=== PATIENT | female | born 1960 | race Caucasian/White ===

== ENCOUNTER 2019-06-27 09:56 | Outpatient (CLI) | payer BC, SELFPAY ==
[2019-06-27 10:19] LABS: Basophils Percent Auto 0.5 % (0.2-1.2); Eosinophils Absolute Auto 0.1 K/mm3 (0-0.3); Eosinophils Percent Auto 2.1 % (0-4.4); Hematocrit 48.6 % (37.0-47.0); Hemoglobin 16.8 g/dL (12.0-15.0); Immature Granulocyte Absolute 0.01 K/mm3 (0.00-0.031); Immature Granulocyte Percent A 0.2 % (0-0.5); Lymphocytes Absolute Auto 0.86 K/mm3 (0.9-3.2); Lymphocytes Percent Auto 15.1 % (18.3-44.2); Mean Corpuscular HGB Conc 34.6 g/dl (32-36); Mean Corpuscular Hemoglobin 32.6 pg (26-34); Mean Corpuscular Volume 94.4 fl (80-100); Mean Platelet Volume 10.4 fl (7.4-10.4); Monocytes Absolute Auto 0.4 K/mm3 (0.1-0.6); Monocytes Percent Auto 7.4 % (2.6-8.5); Neutrophils Absolute Auto 4.3 K/mm3 (1.3-6.7); Neutrophils Percent Auto 74.7 % (45.5-73.1); Platelet Count Result 244 k/mm3 (150-375); Red Blood Count 5.15 M/mm3 (4.2-5.4); Red Cell Distribution Width 12.5 % (11.5-14.5); White Blood Count 5.7 K/mm3 (4.5-10.0)
[2019-06-27 10:24] LABS: Add Urine Microscopic? YES; Appearance Urine Clear (Clear); Bacteria Urine Trace /hpf; Bilirubin Urine Negative (Negative); Blood Urine 2+ (Negative); Color Urine Yellow (Yellow); Glucose Urine UA Negative (Negative); Ketones Urine Trace mg/dL (Negative); Leukocyte Esterase Ur Negative LEU/UL (Negative); Mucus Urine Rare /lpf; Nitrate Urine Negative (Negative); Protein Urine Negative (Negative); Specific Grav Ur 1.011 (1.001-1.035); Squamous Epithelial Cell Urine Few /hpf (Few); Urobilinogen Urine Negative mg/dL (<2.0)
[2019-06-27 10:39] LABS: Alanine Aminotransferase 23 U/L (4-35); Albumin Level 4.1 g/dL (3.5-5.1); Alkaline Phosphatase 109 U/L (38-126); Amylase 73 U/L (30-110); Aspartate Amino Transferase 30 U/L (14-36); Bilirubin,Total 0.7 mg/dL (0.2-1.3); Blood Urea Nitrogen 9 mg/dL (7-17); Calcium 9.8 mg/dL (8.4-10.2); Carbon Dioxide 30 mmol/L (22-30); Chloride 105 mmol/L (98-107); Estimated Glomerular Filt Rate > 60; Glucose 115 mg/dL (65-105); Lipase 51 U/L (23-300); Potassium 4.4 mmol/L (3.4-5.0); Sodium 139 mmol/L (137-145)
== END 2019-06-27 09:57 | disposition home or self-care (01) ==
PROVIDERS: PCP Family Medicine; Visit Provider Family Medicine
DX: R10.11 Right upper quadrant pain (principal); R11.0 Nausea
CPT/HCPCS: 36415; 80053; 81001; 82150; 83690; 85025

== ENCOUNTER 2020-05-22 11:05 | Outpatient (CLI) | payer BC, SELFPAY ==
--- NOTE | ~2020-05-22 | US_ITS ---
EXAMINATION: US venous doppler LE RT DATE: 05/22/2020 11:37 INDICATION: Right lower limb pain TECHNIQUE: Walls scale images without and with compression and Doppler images of the right lower extre mity veins were obtained. COMPARISON: None FINDINGS: The right common femoral vein, profunda femoral vein, femoral vein, popliteal vein, peronea l trunk, posterior tibial veins, and greater saphenous vein are patent. IMPRESSION: 1. Patent right lower extremity veins. No evidence of deep venous thrombosis. Reviewed, dictated and finalized at location B.
== END 2020-05-22 11:06 | disposition home or self-care (01) ==
PROVIDERS: PCP Family Medicine; Visit Provider Orthopaedic Surgery
DX: M79.89 Other specified soft tissue disorders (principal)
CPT/HCPCS: 93971

== ENCOUNTER 2020-07-12 07:58 | Outpatient (CLI) | payer BC, SELFPAY ==
--- NOTE | ~2020-07-12 | MM_ITS ---
EXAMINATION: MM screening shazia BI w naif HISTORY: Screening TECHNIQUE: Craniocaudal and mediolateral oblique 3-D tomosynthesis images were obtained and synthetic 2-D images were generated. CAD analysis was submitted and interpreted. COMPARISON: Comparison to multiple prior studies sequentially, with oldest reviewed study dated 11/03. BREAST PARENCHYMAL COMPOSITION: There are scattered areas of fibroglandular density. FINDINGS: There is no evidence of suspicious mass, calcification, or architectural distortion to sugg est malignancy in either breast. There has been no suspicious interval change. IMPRESSION: 1. No mammographic evidence of malignancy. 2. Recommend routine screening mammography in one year. BI-RADS Category 1: Negative Reviewed, dictated and finalized at location A.
== END 2020-07-12 07:59 | disposition home or self-care (01) ==
PROVIDERS: PCP Family Medicine; Visit Provider Family Medicine
DX: Z12.31 Encounter for screening mammogram for malignant neoplasm of breast (principal)
CPT/HCPCS: 77063; 77067

== ENCOUNTER 2021-11-10 16:51 | Inpatient (IN) | payer BC, SELFPAY ==
[2021-11-10] VITALS (34 sets, daily range): BP systolic 120–158; BP diastolic 52–94; PULSE 70–91; RESP 14–25; TEMP 36.3–36.6; O2SAT 93–100; BMI 47.6
--- NOTE | ~2021-11-10 | XR_ITS ---
EXAM: XR wrist LT 2V DATE: 11/10/2021 19:10 HISTORY: joint reduction . COMPARISON: Same date at 5:06 PM. FINDINGS/IMPRESSION: Cast material obscures osseous detail. Considerably improved alignment of the co mminuted distal radial and ulnar fractures, with persistent one half shaft width posterior displaceme nt and persistent 25 degrees posterior angulation. Reviewed, dictated and finalized at location K.
--- NOTE | ~2021-11-10 | XR_ITS ---
EXAMINATION: XR surgery orthopedic DATE: 11/12/2021 14:55 INDICATION: ORIF left wrist fracture TECHNIQUE: 4 fluoroscopic images of the left wrist were obtained during procedure performed by Dr. Pancho echevarria. Radiologist was not present for the imaging or procedure. The amount of fluoroscopy time used during this procedure was 0.5 minutes. COMPARISON: 11/10/2021 FINDINGS: Interval open reduction internal fixation of a comminuted intra-articular fracture of the distal left radius which is now in near anatomic alignment. The fracture is fixed with a volar T plate and screw as well as an interfragmentary screw which spans the oblique fracture plane which extends proximally into the metadiaphyseal region. No significant fracture gap or incongruity at the intertubercular fr acture line which extends to the articular surface of the radial styloid. Additional comminuted extra articular fracture of the distal metadiaphyseal region of the ulna has also been reduced to near-selam tomic alignment and which is subsequently fixed with an axially directed percutaneous pin which exten ds from the ulnar styloid process proximal into the distal diaphysis and beyond the proximal margin o f the [id number]. No other fractures identified. Normal carpal alignment. Joint spaces appear rela tively preserved. IMPRESSION: 1. Near-anatomic alignment post open reduction internal fixation of comminuted fractures of the dista l left radius and ulna. Reviewed, dictated and finalized at location A. IMPRESSION: 1. Near-anatomic alignment post open reduction internal fixation of comminuted fractures of the distal left radius and ulna.
--- NOTE | ~2021-11-10 | XR_ITS ---
EXAM: XR wrist LT min 3V DATE: 11/10/2021 17:13 HISTORY: fall today, deformity to left wrist . COMPARISON: None available. FINDINGS: Decreased mineralization. Comminuted fractures of the distal left radius and ulna, with gr eater than one shaft width posterior displacement, posterior angulation, and overriding bone ends. Th ere is likely intra-articular extension of the radial fracture. No lytic or blastic lesion. Joint spa bina are maintained. No erosion or periosteal change. Soft tissues within normal limits. IMPRESSION: Comminuted, overlapping, angulated, and significantly displaced fractures of the left dis vishnu radius and ulna. Reviewed, dictated and finalized at location K. IMPRESSION: Comminuted, overlapping, angulated, and significantly displaced fra ctures of the left distal radius and ulna.
[2021-11-10] MEDS: fentaNYL CITRATE INJ (*CRX) 100 MCG/2 ML VIAL 50 MCG IV PUSH ×3 (17:19→19:30)
--- NOTE | 2021-11-10 17:25 | ED.UPPEXIN ---
HPI - Extremity Injury (Upper) General Chief Complaint: Extremity Injury, Upper <STEPHEN Moreno Last Filed: 11/11/21 00:13> Stated Complaint: left wrist pain <STEPHEN Moreno Last Filed: 11/11/21 00:13> Time Seen by Provider: 11/10/21 17:00 <STEPHEN Moreno Last Filed: 11/11/21 00:13> Source: patient <STEPHEN Moreno Last Filed: 11/11/21 00:13> Mode of arrival: ambulatory <STEPHEN Moreno Filed: 11/11/21 00:13> Limitations: no limitations <STEPHEN Moreno Last Filed: 11/11/21 00:13> History of Present Illness HPI narrative: Patient is a 61 y/o female who presents to the ED with c/o L wrist pain. Patient reports she was moving sod when she tripped and fell landing with her left wrist against the gardening cart. She developed severe pain in her left wrist with deformity. No head injury or LOC. No other injuries. Patient does report sensation in all fingers, but does report tingling in fourth and fifth digits. She has not taken anything for pain prior to arrival. <STEPHEN Moreno Last Filed: 11/11/21 00:13> Related Data Home Medications: Home Medications Medication Instructions Recorded Confirmed aspirin 81 mg chewable tablet 81 mg PO DAILY 05/07/20 11/10/21 cetirizine 10 mg tablet (Zyrtec) 10 mg PO DAILY PRN seasonal 08/22/21 11/10/21 allergies coenzyme Q10 200 mg capsule 200 mg PO DAILY 11/10/21 11/10/21 <STEPHEN Moreno Last Filed: 11/11/21 00:13> Allergies/Adverse Reactions: Allergies Allergy/AdvReac Type Severity Reaction Status Date / Time No Known Allergies Allergy Verified 11/10/21 23:46 <STEPHEN Moreno Last Filed: 11/11/21 00:13> Review of Systems Review of Systems: CONSTITUTIONAL: Denies fever, chills, or sweats. MUSCULOSKELETAL: Reports L wrist pain. NEUROLOGIC: Reports tingling in L 4th and 5th digits. Denies HI, LOC, numbness, or weakness. <Lauren Pina PA-C - Last Filed: 11/11/21 00:13> All systems reviewed & are unremarkable except as noted in HPI and below <Lauren Pina PA-C - Last Filed: 11/11/21 00:13> [facility] Past Medical History Medical History: Medical History (Updated 11/11/21 @ 16:20 by Carlos Zarate MD) Allergic rhinitis Arthritis Asthma Chronic GERD COVID-19 (08/2021) Degenerative disc disease at L5-S1 level Noted on MRI of the hip and pelvis 03/2018 Hyperglycemia Glucose 115 June 2019 Hyperlipidemia Mammogram normal 07/12/2020 Mild chronic obstructive pulmonary disease Mild obstructive ventilatory impairment noted on PFTs 11/2018 Morbid obesity with BMI of 45.0-49.9, adult Obstructive sleep apnea syndrome Polysomnogram 10/2018 demonstrated mild obstructive sleep apnea with hypoxic events down to 82% but did not meet criteria for CPAP titration. Osteoarthritis of right knee Osteopenia after menopause Noted on x-rays April 2020 patient was referred for DEXA scan September 2021 Polycythemia Postmenopausal <Lauren Pina PA-C - Last Filed: 11/11/21 00:13> Surgical History Surgical History: Surgical History History of colonoscopy (04/2012) Diverticulum transverse colon <Lauren Pina PA-C - Last Filed: 11/11/21 00:13> Family History Family History: Family History Father Diabetes mellitus Hypertension Acute myocardial infarction, Onset Age: 45 Mother , 67 Diabetes mellitus <Lauren Pina PA-C - Last Filed: 11/11/21 00:13> Social History Social History: Social History (Updated 11/11/21 @ 09:14 by ANGIE Choe) Social History: Code status: Full code Surrogate decision maker: Smoking status: Never smoker Second hand tobacco smoke exposure: No Alcohol intake: c
--- NOTE | 2021-11-10 19:03 | PC.NURSE ---
Pt was given 60mg of propofol was given to the pt at 1849. Another 60mg administered at 1851. Final dose of 30mg administered at 1855. Pt tolerated procedure well.
--- NOTE | 2021-11-10 19:37 | PC.NURSE ---
Report received from MACARIO Roman. Pt requesting further pain meds. PA made aware.
[2021-11-10] MEDS: HYDROmorphone HCL INJ (*CRX) 1 MG/ML SYR IV PUSH ×2 (20:11→23:59)
--- NOTE | 2021-11-10 20:11 | PC.NURSE ---
Left arm sling in place and aleks bandage around splint. Pt c/o numbness to 4th, 5th fingers and pain to left forearm. Has good finger movement and cap refill <2sec. Aleks bandage readjusted, loosened somewhat, and replaced into sling. Pain meds IVP.
--- NOTE | 2021-11-10 20:42 | PC.NURSE ---
BARBARA Aguilar at pt's bedside.
--- NOTE | 2021-11-10 21:14 | PC.NURSE ---
Preparing to contact oc for possible admission.
[2021-11-10] MEDS: KETOROLAC 30 MG/ML VIAL (*BKC) IV PUSH (21:34)
[2021-11-10] MEDS: oxyCODONE/ACETAMINOPHEN (*CRX) 5-325 MG TABLET 1 TABLET PO (21:35)
--- NOTE | 2021-11-10 21:46 | PC.NURSE ---
Additional meds given per Anup Benavides RN.
--- NOTE | 2021-11-10 22:13 | PC.NURSE ---
Pt ambulatory to and from bathroom. After assisted back to bed, states that her pain is a little better, rates 8/10. States her pinky finger remains numb. Pt has been elevating extremity and using ice to splint.
--- NOTE | 2021-11-10 22:30 | PC.NURSE ---
BARBARA Aguilar at bedside for reevaluation, 45 min after meds given IV and PO. Pt's pain not significantly better, so planning to admit for pain control per Dr. Cox and Dr. Holm.
--- NOTE | 2021-11-10 22:54 | PM.IMHP ---
H&P: HPI History of Present Illness Date/Time: 11/10/21 22:54 Chief Complaint: Tripped and fell now has wrist pain Narrative: 61-year-old female with past medical history of morbid obesity, polycythemia, postmenopausal osteopenia, obstructive sleep apnea and mild obstructive lung disease who presented to the ER after having a trip and fall landing on her wrist. She had immediate wrist pain with obvious deformity of the wrist. Imaging in the ER demonstrated comminuted overlapping angulated and significantly displaced fractures of the left distal radius and ulna. Patient underwent conscious sedation with propofol and had her fracture reduced and splinted in the ER. Despite reduction of fracture patient was still reporting intractable pain. She received 3 doses of fentanyl 50 mcg in the ER and 1 dose of Dilaudid. When I was called for consult I recommended patient received Toradol 30 mg IV and Percocet. Before the patient was still having 9/10 pain and was reluctant to go home due to intractable pain. Patient being admitted as observation in the setting. the patient reports that she was moving some sod and went to step over a pile of this odd and got tripped up. She fell landing forward and striking her wrist on a metal wheelbarrow. S any she stood up she knew that her wrist was fractured as it was dangling. She reports paresthesias of the 4th and 5th digits of the left hand. She has intact motor activity of the hand. She has significantly decreased sensation to the 5th digit and moderate decreased sensation of lateral aspect of the 4th digit. Cap refill is intact. She reports that her pain has improved a couple of hours after Toradol and Percocet. Her pain is down to an 8/10. She reports that she has broke her left wrist in the past but was treated conservatively with casting. She does have osteoarthritis of the left knee and needs a knee replacement but she cannot have surgery until her BMI is less than 40. She has struggled with her weight for many years in has had difficulty with any significant prolonged weight loss. She does have excessive daytime fatigue. She does have daytime snoring. Patient is postmenopausal and was referred for outpatient DEXA scan September 2021. She did have prior imaging of her knee which demonstrated osteoarthritis and evidence of probable osteopenia. She is at elevated glucoses noted as outpatient and was referred for hemoglobin A1c as well. She has been reporting fatigue and subsequently outpatient TSH B12 and vitamin D levels were ordered. She does not take any calcium or vitamin-D supplements at home. Patient does have history of obstructive sleep apnea with polysomnogram in 2019 demonstrating mild obstructive sleep apnea and episodes nocturnal hypoxia down to 82% but the events were not severe enough to qualify for CPAP titration. Her weight is equivalent to whenever she had her polysomnogram. She reports persistent fatigue. She also reports restless leg movements at night but did not have any significant amount of restless leg movements on her polysomnogram. Review of Systems Review of Systems: 12 systems were reviewed with pertinent positives and negatives per HPI. Except as documented in the HPI, all other systems were reviewed and are negative. [facility] Past Medical History Medical History (Updated 11/11/21 @ 03:19 by Erin Cox, DO) Allergic rhinitis Arthritis Chronic GERD COVID-19 (08/2021) Degenerative disc disease at L5-S1 level Noted on MRI of the hip and pelvis 03/2018 Hyperglycemia Glucose 115 June 2019 Hyperlipidemia Mammogram normal 07/12/2020 Mild chronic obstructive pulmonary disease Mild obstructive ventilatory impairment noted on PFTs 11/2018 Morbid obesity with BMI of 45.0-49.9, adult Obstructive sleep apnea syndrome Polysomnogram 10/2018 demonstrated mild obstructive sleep apnea with hypoxic events down to 82% but did not meet criteria for CPAP titration. Osteoarthritis of
--- NOTE | 2021-11-10 23:10 | ADMGEN ---
This patient, Genet Hickman, was admitted to [facility] Surg Room 302-01. Patient/family oriented to hospital policies and general routines including ID bracelet, bed and alarms, visiting hours, pain management, procedures, bathroom and other care routines, personal items, smoking policy, room service/diet, and visiting hours. Information on how to activate the Rapid Response Team has been discussed. Patient/Family are encouraged to report perceived risks to care and to ask questions if they do not understand what they are told or what they should do.
[2021-11-10 23:50] LABS: Basophils Percent Auto 0.2 % (0.2-1.2); Immature Granulocyte Absolute 0.03 K/mm3 (0.00-0.031); Immature Granulocyte Percent A 0.3 % (0-0.5); Lymphocytes Absolute Auto 0.52 K/mm3 (0.9-3.2); Lymphocytes Percent Auto 4.7 % (18.3-44.2); Mean Corpuscular HGB Conc 34.8 g/dl (32-36); Mean Corpuscular Hemoglobin 33.3 pg (26-34); Mean Corpuscular Volume 95.6 fl (80-100); Mean Platelet Volume 10.1 fl (7.4-10.4); Monocytes Absolute Auto 0.4 K/mm3 (0.1-0.6); Monocytes Percent Auto 3.2 % (2.6-8.5); Neutrophils Absolute Auto 10.2 K/mm3 (1.3-6.7); Neutrophils Percent Auto 91.6 % (45.5-73.1); Platelet Count Result 230 k/mm3 (150-375); Red Blood Count 4.81 M/mm3 (4.2-5.4); Red Cell Distribution Width 13.3 % (11.5-14.5); White Blood Count 11.1 K/mm3 (4.5-10.0)
[2021-11-11] LABS: Anion Gap 7 mmol/L (8-16); Blood Urea Nitrogen 17 mg/dL (7-17); Calcium 9.6 mg/dL (8.4-10.2); Carbon Dioxide 22 mmol/L (22-30); Chloride 107 mmol/L (98-107); Estimated CRCL calculation 123 ml/min; Estimated Glomerular Filt Rate > 60; Glucose 184 mg/dL (65-110); Sodium 136 mmol/L (137-145)
[2021-11-11 00:33] VITALS: BP 134/62
[2021-11-11] MEDS: KETOROLAC 30 MG/ML VIAL (*BKC) IV PUSH (02:53)
[2021-11-11] MEDS: oxyCODONE/ACETAMINOPHEN (*CRX) 10-325 MG TABLET 1 TAB PO ×4 (04:10→19:50)
[2021-11-11 06:00] VITALS: BP 117/62; PULSE 71; RESP 18; TEMP 36.4; O2SAT 94
[2021-11-11 07:27] LABS: Hemoglobin A1C 5.4 % (<5.7)
[2021-11-11 08:16] LABS: Glucose Point of Care 120 mg/dl (65-105)
[2021-11-11] MEDS: ASPIRIN 81 MG CHEWABLE TABLET PO (08:19)
--- NOTE | 2021-11-11 09:11 | PM.CNOR ---
Assessment and Plan Assessment and plan (1) Closed fracture distal radius and ulna: Qualifiers: Encounter type: initial encounter Laterality: left Qualified Code(s): S52.502A - Unspecified fracture of the lower end of left radius, initial encounter for closed fracture; S52.602A - Unspecified fracture of lower end of left ulna, initial encounter for closed fracture <Vivi Minor Naidu, [employer] - Last Filed: 11/11/21 11:50> Code(s): S52.509A - Unspecified fracture of the lower end of unspecified radius, initial encounter for closed fracture; S52.609A - Unspecified fracture of lower end of unspecified ulna, initial encounter for closed fracture <Vivi Genesis. Elysia, [employer] - Last Filed: 11/11/21 11:50> Status: Acute <Vivi M. Elysia, [employer] - Last Filed: 11/11/21 11:50> Assessment and Plan: History, exam and radiographs reviewed with the patient. Radiographs of the left wrist reveal comminuted, overlapping, angulated and displaced fractures of the left distal radius and ulna. Fractures then reduced by the ED physician. Condition, nature, etiology and course of natural history discussed. Conservative and operative treatment options reviewed as well as the risks and benefits of both. The patients questions were answered. The patient desires operative treatment. Discussed ORIF Left Wrist Risks of surgery including but not limited to neurovascular damage, wound complications, blood clot, pulmonary embolus, stroke, myocardial infarction, anesthetic risks up to and including were reviewed. Continued pain and possible dysfunction were explained. No guarantees were offered. The patient understands and wishes to proceed. Patient has eaten already this AM and is no longer able to go to the operating room. Pain control with oral medication limited. Patient requiring IV medication. OR tomorrow with Dr. Mihai ESPINOSA at midnight. Continue splint/ice/elevation and pain control in the interim. Plan: ORIF Left Wrist on 11/12/21. <Vivisa Minor Naidu, [employer] - Last Filed: 11/11/21 11:50> (2) Intractable pain: Code(s): R52 - Pain, unspecified <Vivisa Minor Naidu, [employer] - Last Filed: 11/11/21 11:50> Status: Acute <Vivi M. Ruwe, [employer] - Last Filed: 11/11/21 11:50> Assessment and Plan: Transition to PO pain medication if able. Ice, elevate. <ANGIE Choe - Last Filed: 11/11/21 11:50> Assessment and Plan: Pt seen and examined. Discussed nonoperative and operative treatment options with the patient. Risks and benefits of each as well as alternatives were reviewed. All of the patient's questions were answered. The risks of surgery reviewed including but not limited to: Neurovascular damage, wound complication, infection, blood clot, pulmonary embolus, stroke, myocardial infarction, and anesthetic risks up to and including . Continued pain and possible dysfunction were explained. Specific risks of the procedure including later recurrence of deformity. No guarantees were offered. If hardware used, discussed risk of failure/ breakage and possible need for removal. If complications occur, the patient understands the need for further treatment, possible further surgery. Patient verbalizes understanding and wishes to proceed. PLAN:ORIF left wrist <Ryan Holm MD - Last Filed: 11/11/21 16:47> History of Present Illness HPI Consult date: 11/11/21 <ANGIE Choe - Last Filed: 11/11/21 11:50> 11/11/21 <Ryan Holm MD - Last Filed: 11/11/21 16:47> Chief complaint: Left Distal Radius & Ulnar Fractures,Pain Control <ANGIE Choe - Last Filed: 11/11/21 11:50> Narrative: 61 year old female admitted s/p fall at home while laying sod which resulted in a left wrist fracture. Radiographs in the ED revealed comminuted, overlapping, angulated and displaced fractures of the left distal radius and ulna. Patient was admitted for uncontrolled pain. <Jericho Choe
[2021-11-11] MEDS: HYDROmorphone HCL INJ (*CRX) 1 MG/ML SYR IV PUSH (10:42)
[2021-11-11 11:45] LABS: Glucose Point of Care 136 mg/dl (65-105)
--- NOTE | 2021-11-11 12:30 | WPDANESEPPF ---
Anes - Initial Pre Proc Eval Procedure: Operation Date: 11/12/21 13:00 Proposed Procedures p Open Reduction Internal Fixation Left Wrist - Ryan Holm MD Date/Time: 11/11/21 12:30 Surgeon: Erin Cox DO Pre Op Diagnosis: Left Distal Radius & Ulnar Fractures,Pain Control Patient Data Age: 61 Gender: F Height: 1.7 m Weight: 138 kg Last Vital Signs Temp 36.4 C 11/11/21 06:00 Pulse 71 11/11/21 06:00 Resp 18 11/11/21 06:00 BP 117/62 11/11/21 06:00 Pulse Ox 94 11/11/21 06:00 O2 Del Method Room Air 11/11/21 08:00 O2 Flow Rate 2 11/10/21 19:02 Allergies Allergy/AdvReac Type Severity Reaction Status Date / Time No Known Allergies Allergy Verified 11/10/21 23:46 Home Medications Medication Instructions Recorded Confirmed Type aspirin 81 mg chewable tablet 81 mg PO DAILY 05/07/20 11/10/21 History cetirizine 10 mg tablet (Zyrtec) 10 mg PO DAILY PRN seasonal 08/22/21 11/10/21 History allergies betamethasone dipropionate 0.05 % 1 applic topical BID PRN rash #60 09/18/21 11/10/21 Rx lotion mL coenzyme Q10 200 mg capsule 200 mg PO DAILY 11/10/21 11/10/21 History Laboratory Tests 11/10/21 11/10/21 11/11/21 23:45 23:45 06:04 WBC 11.1 K/mm3 H K/mm3 (4.5-10.0) RBC 4.81 M/mm3 M/mm3 (4.2-5.4) Hgb 16.0 g/dL H g/dL (12.0-15.0) Hct 46.0 % % (37.0-47.0) MCV 95.6 fl fl (80-100) MCH 33.3 pg pg (26-34) MCHC 34.8 g/dl g/dl (32-36) RDW 13.3 % % (11.5-14.5) Plt Count 230 k/mm3 k/mm3 (150-375) MPV 10.1 fl fl (7.4-10.4) Immature Gran % (Auto) 0.3 % % (0-0.5) Neut % (Auto) 91.6 % H % (45.5-73.1) Lymph % (Auto) 4.7 % L % (18.3-44.2) Custer % (Auto) 3.2 % % (2.6-8.5) Eos % (Auto) 0.0 % % (0-4.4) Baso % (Auto) 0.2 % % (0.2-1.2) Lymph # (Auto) 0.52 K/mm3 L K/mm3 (0.9-3.2) Custer # (Auto) 0.4 K/mm3 K/mm3 (0.1-0.6) Eos # (Auto) 0.0 K/mm3 K/mm3 (0-0.3) Baso # (Auto) 0.0 K/mm3 K/mm3 (0.0-0.1) Abs Immat Gran (auto) 0.03 K/mm3 K/mm3 (0.00-0.031) Absolute Neuts (auto) 10.2 K/mm3 H K/mm3 (1.3-6.7) Absolute Nucleated RBC 0.0 K/mm3 K/mm3 (0.0-0.012) Nucleated RBC % 0.0 % % (0.0-0.2) Sodium 136 mmol/L L mmol/L (137-145) Potassium 4.0 mmol/L mmol/L (3.4-5.0) Chloride 107 mmol/L mmol/L (98-107) Carbon Dioxide 22 mmol/L mmol/L (22-30) Anion Gap 7 mmol/L L mmol/L (8-16) BUN 17 mg/dL mg/dL (7-17) Creatinine 0.60 mg/dL L mg/dL (0.7-1.0) Estim Creat Clear Calc 123 ml/min ml/min Estimated GFR > 60 (59 - ) Glucose 184 mg/dL H mg/dL (65-110) POC Capillary Glucose Hemoglobin A1c Calcium 9.6 mg/dL mg/dL (8.4-10.2) Vit D 1,25-Dihyd Total 1,25 Dihydroxy Vit D2 1,25 Dihydroxy Vit D3 TSH (Reflex) 1.840 uIU/mL uIU/mL (0.465-4.68) 11/11/21 11/11/21 11/11/21 06:04 06:04 08:07 WBC RBC Hgb Hct MCV MCH MCHC RDW Plt Count MPV Immature Gran % (Auto) Neut % (Auto) Lymph % (Auto) Custer % (Auto) Eos % (Auto) Baso % (Auto) Lymph # (Auto) Custer # (Auto) Eos # (Auto) Baso # (Auto) Abs Immat Gran (auto) Absolute Neuts (auto) Absolute Nucleated RBC Nucleated RBC % Sodium Potassium Chloride Carbon Dioxide Anion Gap BUN Creatinine Estim Creat Clear Calc
--- NOTE | 2021-11-11 12:32 | WPDANESPNB ---
Anes - Peripheral Nerve Block Date/Time: 11/11/21 12:32 I have discussed with the patient/family/POA the placement of a peripheral nerve block for post-operative pain management, including associated risks, benefits, complications, and side effects. Alternative methods of post-operative analgesia were detailed. Questions were solicited and answers provided to the satisfaction of the patient/family/POA. Time-Out: A pre-procedural Time-Out was completed immediately before starting the procedure and confirmed: Patient Identification, Site, Procedure, Patient Position and the Availability of Requisite Equipment. Clinical Indications: Acute post-operative pain management requested by the operative surgeon. Nerve Block Insertion Note Needle: 22 gauge, stimulating, insulated echogenic needle.
[2021-11-11 15:08] VITALS: BP 144/86; PULSE 69; RESP 18; TEMP 36.1; O2SAT 100
--- NOTE | 2021-11-11 15:27 | PM.IMPN ---
Progress Note: A&P Assessment and Plan (1) Closed fracture distal radius and ulna: Qualifiers: Encounter type: initial encounter Laterality: left Qualified Code(s): S52.502A - Unspecified fracture of the lower end of left radius, initial encounter for closed fracture; S52.602A - Unspecified fracture of lower end of left ulna, initial encounter for closed fracture Code(s): S52.509A - Unspecified fracture of the lower end of unspecified radius, initial encounter for closed fracture; S52.609A - Unspecified fracture of lower end of unspecified ulna, initial encounter for closed fracture Status: Acute Assessment and Plan: The patient presents with left wrist pain after a fall and found to have a comminuted distal radial and ulnar fracture status post reduction and splinting in the ER. Plan was to discharge the patient home for outpatient follow-up but patient had persistent, uncontrolled pain so she was admitted. Orthopedic surgery was consulted. Pain is still 8/10 but she states she is more comfortable so will continue current prn pain meds. Plan for surgical repair tomorrow. (2) Intractable pain: Code(s): R52 - Pain, unspecified Status: Acute Assessment and Plan: As above. (3) Hyperglycemia: Code(s): R73.9 - Hyperglycemia, unspecified Status: Acute Assessment and Plan: The patient noted to have hyperglycemia with glucose to 184. Suspect related to stress response. A1c 5.4. Monitor with Accu-Cheks (4) Obstructive sleep apnea syndrome: Code(s): G47.33 - Obstructive sleep apnea (adult) (pediatric) Status: Acute Assessment and Plan: Patient with excessive daytime fatigue, persistent polycythemia and known history of hypoxia on prior polysomnogram. Despite the patient's obstructive sleep apnea being mild on her prior polysomnogram, she would likely benefit from CPAP titration to treat her hypoxic events and this may also help with some of her fatigue. STOP-BANG =2. Patient to follow up with PCP for further evaluation. (5) Morbid obesity: Code(s): E66.01 - Morbid (severe) obesity due to excess calories Status: Acute Assessment and Plan: BMI 47.6. Will educate about the benefits of healthy lifestyle. Subjective Date/time seen: 11/11/21 15:27 Interval history: 61yo female with MO, polycythemia and DAWIT who presents to the ER with wrist pain after a fall and found to have Left distal ulnar + radial fracture. Pain ws very severe but down to 8/10 after receiving pain medications. Despite the 8/10, she states it is tolerable. No n/v. Decreased appetie. No CP or SOB. Has tingling in her left 5th finger. Exam Narrative: AF 96.9 144/86 69 18 100% ra Gen - NARD Chest - lungs are clear anteriorly, nml RR CV - RRR S1/S2 Abd - Soft, NT/ND, Positive BS Ext - No pedal edema Neuro - nml sensation to the left fingers. good rom to the fingers. Psych - Nml mood and affect Skin - Warm and dry Objective Data Vital Signs Vital Signs: Vital Signs - 24 hr 11/10/21 16:54 11/10/21 18:47 11/10/21 18:52 Temperature 97.9 F 97.3 F L 97.9 F Pulse Rate 82 Pulse Rate [Monitor] 86 86 Respiratory Rate 20 25 H 21 H Blood Pressure 142/73 H Blood Pressure [Right Arm] 141/79 H 128/69 Pulse Oximetry 97 100 99 Oxygen Delivery Room Air Nasal Cannula Nasal Cannula Oxygen Flow Rate 2 2 11/10/21 18:57 11/10/21 19:02 11/10/21 19:07 Temperature 97.3 F L 97.6 F 97.3 F L Pulse Rate Pulse Rate [Monitor] 82 77 74 Respiratory Rate 15 14 18 Blood Pressure Blood Pressure [Right Arm] 124/86 131/85 133/70 Pulse Oximetry 97 100 100 Oxygen Delivery Nasal Cannula Nasal Cannula Room Air Oxygen Flow Rate 2 2 11/10/21 19:22 11/10/21 19:37 11/10/21 22:13 Temperature Pulse Rate 70 Pulse Rate [Monitor] 86 73 Respiratory Rate 14 16 18 Blood Pressure 132/72 Blood Pressure [Right Arm] 120/86 132/74 Pulse Oximetry
[2021-11-11 16:19] LABS: Glucose Point of Care 128 mg/dl (65-105)
[2021-11-11 20:00] VITALS: PULSE 70; RESP 12; O2SAT 96
[2021-11-11 20:58] VITALS: BP 110/68; PULSE 70; RESP 12; TEMP 36.4; O2SAT 96
[2021-11-12] VITALS (17 sets, daily range): BP systolic 106–162; BP diastolic 47–90; PULSE 70–91; RESP 9–22; TEMP 36.2–36.8; O2SAT 92–100
[2021-11-12] MEDS: oxyCODONE/ACETAMINOPHEN (*CRX) 10-325 MG TABLET 1 TAB PO ×4 (04:37→21:21)
[2021-11-12] MEDS: LACTATED RINGERS 1,000 ML 30 ML IV CONT ×2 (12:30→15:25)
[2021-11-12] MEDS: KETOROLAC 15 MG/ML VIAL (*BKC) IV PUSH (12:44)
--- NOTE | 2021-11-12 12:45 | WPDHPUPDATE1 ---
History and Physical Update Update Date/Time: 11/12/21 12:45 History and Physical has been reviewed, including an updated exam of the patient. There are NO changes in the patient's condition. Risks, benefits, and alternatives have been discussed and questions answered. Patient agrees to proceed with procedure.
[2021-11-12] MEDS: ceFAZolin 3 GM/D5W 100 ML 100 ML IVPB (13:09)
[2021-11-12] MEDS: BUPIVACAINE HCL 0.5% PF 30 ML VIAL INFILTRATE (14:46)
--- NOTE | 2021-11-12 15:23 | W.PM.PROC2 ---
Procedure Note - Detailed Date of Procedure 11/12/21 Pre-op Diagnosis Left Distal Radius & Ulnar Fractures,Pain Control Post-op Diagnosis Same Procedure Performed Open reduction internal fixation left distal radius and ulna Surgeon Ryan Holm MD Underwriting Manager 1st ob gyn physician assistant Anesthesia General Indications 61-year-old woman with comminuted intra-articular fracture of the left distal radius and ulna. Presents for operative treatment. She has numbness of the small and ring finger noted preoperatively. No lacerations or wounds noted. Discussed with patient plan for reduction internal fixation and continued evaluation of the ulnar nerve. Findings Comminuted fracture distal radius with multiple fragments and intra-articular extension. Comminuted fracture distal ulna. Description of Procedure After informed consent the operative extremity was marked in the preoperative holding area. Patient received intravenous antibiotics. Patient taken to the operating room where they underwent general anesthesia. Positioned supine on operating table. Time-out performed confirming the patient, patient's site of surgery and the plan. Left upper extremity prepped and draped in the usual sterile surgical fashion using a ChloraPrep skin solution. Hand and wrist exsanguinated and arm tourniquet inflated to 250 mmHg. Standard volar flexor carpi radialis incision utilized. Fifteen blade knife used to make longitudinal incision. Flexor carpi radialis tendon identified, tendon sheath incised in line with skin incision. Tendon retracted to protect the neurovascular elements. Floor of the tendon sheath incised with a 15 blade knife. Flexor pollicis retracted medial. pronator quadratus then divided off the watershed line and reflected ulnarward to expose the distal radius and the fracture. Extensive comminution and proximal extent of the fracture noted through the metaphyseal region. Fracture was then reduced provisionally pinned. Image intensification confirm reduction. Fixation achieved with the extended length distal radius volar plate to span the fracture This was provisionally pinned into place and confirmed with image intensification. Fixation to the proximal fragment with a 3.5 mm screw. Distal fracture fixation achieved with 2.0 mm locking pegs and 2.0 mm fully threaded locking screws for the radial styloid. Fixation was then completed proximally with the remaining 3.5 mm screws. Final reduction of the fracture, alignment of the wrist joint and placement of the hardware verified with image intensification. Instability of the distal ulna fracture noted. Fracture then reduced and verified with image intensification. Fixation achieved with a 1.6 mm K-wire placed in retrograde fashion. Image intensification confirmed placement. Wound thoroughly irrigated with antibiotic solution. Pronator repaired with 3 0 Monocryl interrupted suture. Skin closed with interrupted subcutaneous 000 Monocryl interrupted suture. Skin repaired with 4-0 nylon running suture. Local anesthetic with 0.5% Marcaine. Sterile dressing applied. Padded dressing and splint then applied. Tourniquet released and good capillary refill noted in the fingers and thumb. Patient awoke from anesthesia, extubated and taken to the recovery room in stable condition. All sponge and instrument counts correct at the end of case. Implants Biomet reviewed distal radius volar locking plate and screws Estimated Blood Loss 10 Tourniquet Time 85 Urine Output 400 Drains No Packing No Pathology None sent Complications None Condition Stable Disposition PACU
[2021-11-12 15:44] LABS: Glucose Point of Care 117 mg/dl (65-105)
[2021-11-12] MEDS: fentaNYL CITRATE INJ (*CRX) 100 MCG/2 ML VIAL 25 MCG IV PUSH ×8 (15:49→17:01)
--- NOTE | 2021-11-12 15:57 | PM.IMPN ---
Progress Note: A&P Assessment and Plan (1) Closed fracture distal radius and ulna: Qualifiers: Encounter type: initial encounter Laterality: left Qualified Code(s): S52.502A - Unspecified fracture of the lower end of left radius, initial encounter for closed fracture; S52.602A - Unspecified fracture of lower end of left ulna, initial encounter for closed fracture Code(s): S52.509A - Unspecified fracture of the lower end of unspecified radius, initial encounter for closed fracture; S52.609A - Unspecified fracture of lower end of unspecified ulna, initial encounter for closed fracture Status: Acute Assessment and Plan: The patient presents with left wrist pain after a fall and found to have a comminuted distal radial and ulnar fracture status post reduction and splinting in the ER. Patient was admitted for uncontrolled pain. Orthopedic surgery was consulted and patient underwent ORIF of the fracture earlier today. Continue current pain management. Up to chair as tolerated. (2) Intractable pain: Code(s): R52 - Pain, unspecified Status: Acute Assessment and Plan: As above. (3) Hyperglycemia: Code(s): R73.9 - Hyperglycemia, unspecified Status: Acute Assessment and Plan: The patient noted to have hyperglycemia with glucose to 184. Suspect related to stress response. A1c 5.4. Glucose well controlled now. Continue to monitor with Accu-Cheks (4) Obstructive sleep apnea syndrome: Code(s): G47.33 - Obstructive sleep apnea (adult) (pediatric) Status: Acute Assessment and Plan: Patient with excessive daytime fatigue and persistent polycythemia. TSH normal. Outpatient sleep study in 2019 shows mild DAWIT and did not meet criteria for CPAP. STOP-BANG =2. Patient to follow up with PCP for repeat testing. (5) Morbid obesity: Code(s): E66.01 - Morbid (severe) obesity due to excess calories Status: Acute Assessment and Plan: BMI 47.6. Patient would benefit from healthy lifestyle. Subjective Date/time seen: 11/12/21 15:57 Interval history: 61yo female with MO, polycythemia and DAWIT who presents to the ER with wrist pain after a fall and found to have Left distal ulnar + radial fracture. Patient back from OR. Her pain is controlled at this time. No CP or SOB. Does not have DAWIT and had a negative sleep study in 2019. Exam Narrative: AF 97.1 153/83 74 9 100% ra Gen - NARD Chest - lungs are clear anteriorly, nml RR CV - RRR S1/S2 Abd - Soft, NT/ND, Positive BS Ext - No pedal edema Neuro - has sensation to the left fingers. able to move fingers. fingers warm and dry Psych - Nml mood and affect Skin - Warm and dry Objective Data Vital Signs Vital Signs: Vital Signs - 24 hr 11/11/21 20:58 11/11/21 20:00 11/12/21 04:51 Temperature 97.6 F 97.8 F Pulse Rate 70 70 77 Respiratory Rate 12 12 20 Blood Pressure 110/68 142/63 H Pulse Oximetry 96 96 97 Oxygen Delivery Room Air Oxygen Flow Rate 11/12/21 08:00 11/12/21 12:46 11/12/21 15:10 Temperature 97.6 F 97.1 F L Pulse Rate 77 80 Respiratory Rate 16 11 L Blood Pressure 139/65 137/70 Pulse Oximetry 97 97 98 Oxygen Delivery Room Air Room Air Simple Face Mask Oxygen Flow Rate 6 11/12/21 15:25 11/12/21 15:30 Temperature Pulse Rate 78 74 Respiratory Rate 10 L 9 L Blood Pressure 153/81 H 153/83 H Pulse Oximetry 99 100 Oxygen Delivery Simple Face Mask Simple Face Mask Oxygen Flow Rate 6 6 Intake/Output Intake/Output: Intake & Output 11/09/21 11/10/21 11/11/21 11/12/21 23:59 23:59 23:59 23:59 Intake Total 1240 100 Output Total 800 800 Balance 440 -700 Meds/Results Medications: Active Medications Generic Name Dose Route Start Last Admin Trade Name Freq PRN Reason Stop Dose Admin Acetaminophen 500 mg 11/10/21 22:50 Acetaminophen 500 Mg Tablet PO Q4H PRN Mild Pain (1-3) or Fever Aspirin 81
--- NOTE | 2021-11-12 16:01 | SUR.PHASEI ---
1600: Simple mask removed.
[2021-11-12] MEDS: HYDROmorphone HCL INJ (*CRX) 1 MG/ML SYR 0.25 MG IV PUSH ×4 (16:24→16:49)
[2021-11-12] MEDS: SODIUM CHLORIDE 0.9% IV 1,000 ML 125 ML IV CONT (17:30)
[2021-11-12] MEDS: HYDROmorphone HCL INJ (*CRX) 1 MG/ML SYR IV PUSH (18:31)
--- NOTE | 2021-11-12 18:44 | ADMGEN ---
This patient, Gente Hickman, was admitted to [facility] Surg Room 302-01. Patient/family oriented to hospital policies and general routines including ID bracelet, bed and alarms, visiting hours, pain management, procedures, bathroom and other care routines, personal items, smoking policy, room service/diet, and visiting hours. Information on how to activate the Rapid Response Team has been discussed. Patient/Family are encouraged to report perceived risks to care and to ask questions if they do not understand what they are told or what they should do.
[2021-11-12] MEDS: SENNA/DOCUSATE SODIUM TABLET 2 TAB PO (21:22)
[2021-11-12] MEDS: ceFAZolin 2 GM/D5W 50 ML 2 GM/50 ML BAG IVPB (21:23)
[2021-11-12] MEDS: FAMOTIDINE 20 MG TABLET PO (21:23)
[2021-11-13] MEDS: SODIUM CHLORIDE 0.9% IV 1,000 ML 125 ML IV CONT (01:17)
[2021-11-13] MEDS: oxyCODONE/ACETAMINOPHEN (*CRX) 10-325 MG TABLET 1 TAB PO ×5 (01:17→20:21)
[2021-11-13 04:00] VITALS: BP 113/53; PULSE 84; RESP 16; TEMP 36.6; O2SAT 97
[2021-11-13] MEDS: ceFAZolin 2 GM/D5W 50 ML 2 GM/50 ML BAG IVPB ×2 (05:10→13:01)
[2021-11-13 06:07] LABS: Basophils Percent Auto 0.2 % (0.2-1.2); Eosinophils Absolute Auto 0.1 K/mm3 (0-0.3); Eosinophils Percent Auto 1.4 % (0-4.4); Hematocrit 44.2 % (37.0-47.0); Hemoglobin 14.7 g/dL (12.0-15.0); Immature Granulocyte Absolute 0.03 K/mm3 (0.00-0.031); Immature Granulocyte Percent A 0.4 % (0-0.5); Lymphocytes Absolute Auto 1.25 K/mm3 (0.9-3.2); Lymphocytes Percent Auto 14.8 % (18.3-44.2); Mean Corpuscular HGB Conc 33.3 g/dl (32-36); Mean Corpuscular Hemoglobin 33.6 pg (26-34); Mean Corpuscular Volume 100.9 fl (80-100); Mean Platelet Volume 10.7 fl (7.4-10.4); Monocytes Absolute Auto 0.8 K/mm3 (0.1-0.6); Monocytes Percent Auto 9.1 % (2.6-8.5); Neutrophils Absolute Auto 6.2 K/mm3 (1.3-6.7); Neutrophils Percent Auto 74.1 % (45.5-73.1); Platelet Count Result 187 k/mm3 (150-375); Red Blood Count 4.38 M/mm3 (4.2-5.4); Red Cell Distribution Width 13.7 % (11.5-14.5); White Blood Count 8.4 K/mm3 (4.5-10.0)
[2021-11-13 06:34] LABS: Anion Gap 8 mmol/L (8-16); Blood Urea Nitrogen 9 mg/dL (7-17); Carbon Dioxide 24 mmol/L (22-30); Chloride 107 mmol/L (98-107); Estimated CRCL calculation 107 ml/min; Estimated Glomerular Filt Rate > 60; Glucose 108 mg/dL (65-110); Potassium 3.4 mmol/L (3.4-5.0); Sodium 139 mmol/L (137-145)
[2021-11-13] MEDS: HYDROmorphone HCL INJ (*CRX) 1 MG/ML SYR IV PUSH ×2 (06:34→12:59)
[2021-11-13 08:00] VITALS: O2SAT 99
[2021-11-13 08:26] LABS: Glucose Point of Care 120 mg/dl (65-105)
[2021-11-13] MEDS: SENNA/DOCUSATE SODIUM TABLET 2 TAB PO ×2 (09:18→18:10)
[2021-11-13] MEDS: FAMOTIDINE 20 MG TABLET PO ×2 (09:19→19:54)
[2021-11-13] MEDS: polyethylene glycoL 3350 17 GM POWD.PACK PO (09:19)
[2021-11-13] MEDS: ASPIRIN 81 MG CHEWABLE TABLET PO (09:19)
--- NOTE | 2021-11-13 09:25 | P.PNAN_ITS ---
Anes - Prog Note Post-Op Date/Time: 11/13/21 09:25 Cardiovascular status: normal Respiratory status: normal Airway patency: baseline Mental status: baseline Post-Op hydration status: normal Vital Signs: Last Vital Signs Temp 97.8 F 11/13/21 04:00 Pulse 84 11/13/21 04:00 Resp 16 11/13/21 04:00 BP 113/53 L 11/13/21 04:00 Pulse Ox 97 11/13/21 04:00 O2 Del Method Room Air 11/12/21 20:00 O2 Flow Rate 6 11/12/21 15:55 Pain Score (VAS): 0/10 I/O: Intake & Output 11/12/21 11/13/21 11/13/21 23:59 07:59 15:59 Intake Total 850 1150 100 Balance 850 1150 100 Laboratory Tests 11/13/21 05:12 11/13/21 05:12 11/12/21 11/13/21 11/13/21 15:33 05:12 05:12 WBC 8.4 RBC 4.38 Hgb 14.7 Hct 44.2 MCV 100.9 H D MCH 33.6 MCHC 33.3 RDW 13.7 Plt Count 187 MPV 10.7 H Immature Gran % (Auto) 0.4 Neut % (Auto) 74.1 H Lymph % (Auto) 14.8 L Gonzales % (Auto) 9.1 H Eos % (Auto) 1.4 Baso % (Auto) 0.2 Lymph # (Auto) 1.25 Gonzales # (Auto) 0.8 H Eos # (Auto) 0.1 Baso # (Auto) 0.0 Abs Immat Gran (auto) 0.03 Absolute Neuts (auto) 6.2 Absolute Nucleated RBC 0.0 Nucleated RBC % 0.0 Sodium 139 Potassium 3.4 Chloride 107 Carbon Dioxide 24 Anion Gap 8 BUN 9 D Creatinine 0.70 Estim Creat Clear Calc 107 Estimated GFR > 60 Glucose 108 POC Capillary Glucose 117 H Calcium 9.0 11/13/21 08:24 WBC RBC Hgb Hct MCV MCH MCHC RDW Plt Count MPV Immature Gran % (Auto) Neut % (Auto) Lymph % (Auto) Gonzales % (Auto) Eos % (Auto) Baso % (Auto) Lymph # (Auto) Gonzales # (Auto) Eos # (Auto) Baso # (Auto) Abs Immat Gran (auto) Absolute Neuts (auto) Absolute Nucleated RBC Nucleated RBC % Sodium Potassium Chloride Carbon Dioxide Anion Gap BUN Creatinine Estim Creat Clear Calc Estimated GFR Glucose POC Capillary Glucose 120 H Calcium Post-procedural complaints: none Patient Feedback: Patient satisfied with anesthetic care.
[2021-11-13 10:12] VITALS: BP 127/59; PULSE 83; RESP 14; TEMP 37; O2SAT 100
--- NOTE | 2021-11-13 11:40 | PM.IMPN ---
Progress Note: A&P Assessment and Plan (1) Closed fracture distal radius and ulna: Qualifiers: Encounter type: initial encounter Laterality: left Qualified Code(s): S52.502A - Unspecified fracture of the lower end of left radius, initial encounter for closed fracture; S52.602A - Unspecified fracture of lower end of left ulna, initial encounter for closed fracture Code(s): S52.509A - Unspecified fracture of the lower end of unspecified radius, initial encounter for closed fracture; S52.609A - Unspecified fracture of lower end of unspecified ulna, initial encounter for closed fracture Status: Acute Assessment and Plan: The patient presents with left wrist pain after a fall and found to have a comminuted distal radial and ulnar fracture status post reduction and splinting in the ER. Admitted for uncontrolled pain. Orthopedic surgery was consulted and s/p ORIF 11/13/2021 further care per orthopedics (2) Intractable pain: Code(s): R52 - Pain, unspecified Status: Acute Assessment and Plan: As above. still needing iv pain medications. ibuprofen as needed add (3) Hyperglycemia: Code(s): R73.9 - Hyperglycemia, unspecified Status: Acute Assessment and Plan: The patient noted to have hyperglycemia with glucose to 184. Suspect related to stress response. A1c 5.4. Glucose well controlled now. Continue to monitor with Accu-Cheks (4) Obstructive sleep apnea syndrome: Code(s): G47.33 - Obstructive sleep apnea (adult) (pediatric) Status: Acute Assessment and Plan: Patient with excessive daytime fatigue and persistent polycythemia. TSH normal. Outpatient sleep study in 2019 shows mild DAWIT and did not meet criteria for CPAP. STOP-BANG =2. Patient to follow up with PCP for repeat testing. (5) Morbid obesity: Code(s): E66.01 - Morbid (severe) obesity due to excess calories Status: Acute Assessment and Plan: BMI 47.6. Patient would benefit from healthy lifestyle. Subjective Date/time seen: 11/13/21 11:40 Interval history: 61yo female with MO, polycythemia and DAWIT who presents to the ER with wrist pain after a fall and found to have Left distal ulnar + radial fracture. Status post ORIF complains of severe pain requiring IV pain medication this morning. Discussed sleep study finding no prior use of pain medication in the past. Review of Systems Review of Systems: All systems reviewed & are unremarkable except as noted in HPI and below Exam Narrative: Gen - NARD Chest - lungs are clear anteriorly, nml RR CV - RRR S1/S2 Abd - Soft, NT/ND, Positive BS Ext - No pedal edema Neuro - has sensation to the left fingers. able to move fingers. fingers warm and dry Psych - Nml mood and affect Skin - Warm and dry Objective Data Vital Signs Vital Signs: Vital Signs - 24 hr 11/12/21 12:46 11/12/21 15:10 11/12/21 15:25 Temperature 97.6 F 97.1 F L Pulse Rate 77 80 78 Respiratory Rate 16 11 L 10 L Blood Pressure 139/65 137/70 153/81 H Pulse Oximetry 97 98 99 Oxygen Delivery Room Air Simple Face Mask Simple Face Mask Oxygen Flow Rate 6 6 11/12/21 15:30 11/12/21 15:40 11/12/21 15:55 Temperature Pulse Rate 74 78 74 Respiratory Rate 9 L 12 12 Blood Pressure 153/83 H 162/80 H 154/78 H Pulse Oximetry 100 100 100 Oxygen Delivery Simple Face Mask Simple Face Mask Simple Face Mask Oxygen Flow Rate 6 6 6 11/12/21 16:10 11/12/21 16:25 11/12/21 16:40 Temperature Pulse Rate 75 77 70 Respiratory Rate 12 20 18 Blood Pressure 157/88 H 159/77 H 140/69 Pulse Oximetry 100 99 98 Oxygen Delivery Room Air Room Air Room Air Oxygen Flow Rate 11/12/21 16:55 11/12/21 17:20 11/12/21 17:35 Temperature 97.3 F L 97.8 F Pulse Rate 73 91 80 Respiratory Rate 12 22 H 20 Blood Pressure 130/83 162/90 H 140/71 Pulse Oximetry 98 100 100 Oxygen Delivery Room Air Oxygen Flow Rate 11/12/21 17:54 10/0
[2021-11-13 11:44] LABS: Glucose Point of Care 148 mg/dl (65-105)
[2021-11-13 14:52] VITALS: BP 131/71; PULSE 70; RESP 16; TEMP 36.4; O2SAT 99
[2021-11-13 16:43] LABS: Glucose Point of Care 108 mg/dl (65-105)
--- NOTE | 2021-11-13 17:02 | PM.PNORT ---
Progress Note: A&P Assessment and Plan (1) Closed fracture distal radius and ulna: Qualifiers: Encounter type: subsequent encounter Laterality: left Fracture healing: with routine healing Qualified Code(s): S52.502D - Unspecified fracture of the lower end of left radius, subsequent encounter for closed fracture with routine healing; S52.602D - Unspecified fracture of lower end of left ulna, subsequent encounter for closed fracture with routine healing Code(s): S52.509A - Unspecified fracture of the lower end of unspecified radius, initial encounter for closed fracture; S52.609A - Unspecified fracture of lower end of unspecified ulna, initial encounter for closed fracture Status: Acute Assessment and Plan: Postoperative day 1. Patient is still requiring severe medication for pain control. Continue to work on regimen. Discharge home when cleared. Subjective Subjective Date/Time Seen: 11/13/21 17:02 Post Op day: 1 Principal diagnosis: Left distal radius and ulna fracture Interval history: patient awake and alert. Complaint is left wrist pain with motion. Still with decreased sensation ring and small finger, unchanged compared to preop. Using Dilaudid for pain control. Exam Const: General: comfortable; No acute distress Resp: Effort & Inspection: normal respiratory effort and no audible wheezes Extrem: Right lower extremity: lower leg ( Negative Homans sign), ankle Details: normal ROM ( dorsiflexion and plantar flexion intact) and foot Details: vascular exam Details: dorsalis pedis pulse present and normal capillary refill, tendon exam Details: active flexion normal and active extension normal and motor-sensory exam Details: light-touch normal Location: in all toes; no edema Left lower extremity: normal to inspection, ankle Details: normal ROM and foot Details: vascular exam Details: dorsalis pedis pulse present and normal capillary refill and motor-sensory exam light-touch normal in all toes; no edema Other: splint in place left wrist. Fingers and thumb exposed. Able to move. Good capillary refill. Decreased sensation light touch small and ring finger. Objective Data Vital Signs Vital Signs: Vital Signs - 24 hr 11/12/21 17:20 11/12/21 17:35 11/12/21 17:54 Temperature 97.3 F L 97.8 F 98.2 F Pulse Rate 91 80 79 Respiratory Rate 22 H 20 14 Blood Pressure 162/90 H 140/71 128/63 Pulse Oximetry 100 100 92 Oxygen Delivery 11/12/21 20:00 11/12/21 20:00 11/13/21 04:00 Temperature 97.5 F L 97.8 F Pulse Rate 74 74 84 Respiratory Rate 18 18 16 Blood Pressure 106/47 L 113/53 L Pulse Oximetry 100 100 97 Oxygen Delivery Room Air 11/13/21 09:47 11/13/21 10:12 11/13/21 14:52 Temperature 98.6 F 97.6 F Pulse Rate 83 70 Respiratory Rate 14 16 Blood Pressure 127/59 L 131/71 Pulse Oximetry 100 99 Oxygen Delivery Room Air Intake/Output Intake/Output: Intake & Output 11/10/21 11/11/21 11/12/21 11/13/21 23:59 23:59 23:59 23:59 Intake Total 0152 890 1546 Output Total 800 800 Balance 734 055 3430 Meds/Results Medications: Active Medications Generic Name Dose Route Start Last Admin Trade Name Freq PRN Reason Stop Dose Admin Acetaminophen 500 mg 11/10/21 22:50 Acetaminophen 500 Mg Tablet PO Q4H PRN Mild Pain (1-3) or Fever Aspirin 81 mg 11/11/21 09:00 11/13/21 09:19 Aspirin 81 Mg Chewable Tablet PO 81 mg DAILY MARIA TERESA Administration Bisacodyl 10 mg 11/12/21 17:07 Bisacodyl 10 Mg Suppository RECTAL DAILY PRN Constipation Dextrose 12.5 gm 11/11/21 03:27 Dextrose 50% 25 Gm/50 Ml Syringe IV PUSH PRN PRN Hypoglycemia Protocol Famotidine 20 mg 11/12/21 21:00 11/13/21 09:19 Famotidine 20 Mg Tablet PO 20 mg Q12HR MARIA TERESA Administration Glucagon 1 mg 11/11/21 03:27 Glucagon For Inj 1 Mg Vial IM PRN PRN Hypoglycemia Protocol Glucose 15 gm 11/11/21 03:27 Gluco
[2021-11-13 20:00] VITALS: BP 105/48; PULSE 75; RESP 18; TEMP 36.3; O2SAT 95
[2021-11-13 20:35] LABS: Glucose Point of Care 125 mg/dl (65-105)
[2021-11-14] MEDS: oxyCODONE/ACETAMINOPHEN (*CRX) 10-325 MG TABLET 1 TAB PO ×4 (00:27→12:33)
[2021-11-14 06:00] VITALS: BP 121/60; PULSE 70; RESP 18; TEMP 36.2; O2SAT 100
[2021-11-14 07:34] LABS: Glucose Point of Care 120 mg/dl (65-105)
[2021-11-14] MEDS: SENNA/DOCUSATE SODIUM TABLET 2 TAB PO (08:40)
[2021-11-14] MEDS: ASPIRIN 81 MG CHEWABLE TABLET PO (08:40)
[2021-11-14] MEDS: FAMOTIDINE 20 MG TABLET PO (08:41)
[2021-11-14] MEDS: polyethylene glycoL 3350 17 GM POWD.PACK PO (08:41)
--- NOTE | 2021-11-14 09:32 | PM.PNORT ---
Progress Note: A&P Assessment and Plan (1) Closed fracture distal radius and ulna: Qualifiers: Encounter type: subsequent encounter Fracture healing: with routine healing Laterality: left Qualified Code(s): S52.502D - Unspecified fracture of the lower end of left radius, subsequent encounter for closed fracture with routine healing; S52.602D - Unspecified fracture of lower end of left ulna, subsequent encounter for closed fracture with routine healing Code(s): S52.509A - Unspecified fracture of the lower end of unspecified radius, initial encounter for closed fracture; S52.609A - Unspecified fracture of lower end of unspecified ulna, initial encounter for closed fracture Status: Acute Assessment and Plan: POD #2: ORIF Left Wrist Pain well controlled today. Cleared by PT/OT. Splint c/d/i. Reviewed precautions to keep splint in place at home. ILENE ALEJANDRA. Dispo: Home today when medically cleared. Follow up in the outpatient ortho clinic to be arranged. Subjective Subjective Date/Time Seen: 11/14/21 09:33 Post Op day: 2 Principal diagnosis: Left distal radius and ulna fracture Interval history: Patient awake and alert. Significant improvement in pain control, left wrist. Still with decreased sensation ring and small finger, unchanged compared to preop. Review of Systems Review of Systems: All systems reviewed & are unremarkable except as noted in HPI and below Exam Const: General: comfortable; No acute distress Resp: Effort & Inspection: normal respiratory effort and no audible wheezes Extrem: Other: Splint in place left wrist. Fingers and thumb exposed. Able to move. Good capillary refill. Decreased sensation light touch small and ring finger. Elbow without swelling. AROM left elbow without pain. Objective Data Vital Signs Vital Signs: Vital Signs - 24 hr 11/13/21 09:47 11/13/21 10:12 11/13/21 14:52 Temperature 37.0 C 36.4 C Pulse Rate 83 70 Respiratory Rate 14 16 Blood Pressure 127/59 L 131/71 Pulse Oximetry 100 99 Oxygen Delivery Room Air 11/13/21 20:00 11/13/21 20:00 11/14/21 06:00 Temperature 36.3 C L 36.2 C L Pulse Rate 75 70 Respiratory Rate 18 18 Blood Pressure 105/48 L 121/60 Pulse Oximetry 95 100 Oxygen Delivery Room Air Intake/Output Intake/Output: Intake & Output 10/03/22 10/04/22 10/05/22 10/06/22 23:59 23:59 23:59 23:59 Intake Total 6248 585 6135 660 Output Total 800 800 Balance 766 268 9980 660 Meds/Results Medications: Active Medications Generic Name Dose Route Start Last Admin Trade Name Freq PRN Reason Stop Dose Admin Acetaminophen 500 mg 11/10/21 22:50 Acetaminophen 500 Mg Tablet PO Q4H PRN Mild Pain (1-3) or Fever Aspirin 81 mg 11/11/21 09:00 11/14/21 08:40 Aspirin 81 Mg Chewable Tablet PO 81 mg DAILY MARIA TERESA Administration Bisacodyl 10 mg 11/12/21 17:07 Bisacodyl 10 Mg Suppository RECTAL DAILY PRN Constipation Dextrose 12.5 gm 11/11/21 03:27 Dextrose 50% 25 Gm/50 Ml Syringe IV PUSH PRN PRN Hypoglycemia Protocol Famotidine 20 mg 11/12/21 21:00 11/14/21 08:41 Famotidine 20 Mg Tablet PO 20 mg Q12HR MARIA TERESA Administration Glucagon 1 mg 11/11/21 03:27 Glucagon For Inj 1 Mg Vial IM PRN PRN Hypoglycemia Protocol Glucose 15 gm 11/11/21 03:27 Glucose Oral Gel 15 Gm Of Glucse In 37.5 Gm Tube PO PRN PRN Hypoglycemia Protocol Hydromorphone HCl 1 mg 11/10/21 22:50 11/13/21 12:59 Hydromorphone Hcl Inj (*Crx) 1 Mg/Ml Syr IV PUSH 1 mg Q3H PRN Administration Pain Rated 7-10 Dextrose 1,000 mls @ 100 mls/hr 11/11/21 03:27 Dextrose 5% 1,000 Ml IVPB PRN PRN Hypoglycemia Protocol Ibuprofen 600 mg 11/13/21 11:48 Ibuprofen 600 Mg Tablet PO Q6H PRN MODERATE PAIN Insulin Aspart 2 - 5 units 11/11/21 08:00 11/14/21 07:51 Insulin Aspart (*Bkc) 100 Un
--- NOTE | 2021-11-14 11:29 | PM.DS ---
DS: Admitting Diagnosis Discharge Date 11/14/2021 Admitting Diagnosis Fall and left wrist fracture DS: Discharge Diagnosis Discharge Diagnosis (1) Closed fracture distal radius and ulna: Qualifiers: Encounter type: subsequent encounter Fracture healing: with routine healing Laterality: left Qualified Code(s): S52.502D - Unspecified fracture of the lower end of left radius, subsequent encounter for closed fracture with routine healing; S52.602D - Unspecified fracture of lower end of left ulna, subsequent encounter for closed fracture with routine healing Code(s): S52.509A - Unspecified fracture of the lower end of unspecified radius, initial encounter for closed fracture; S52.609A - Unspecified fracture of lower end of unspecified ulna, initial encounter for closed fracture Status: Acute (2) Intractable pain: Code(s): R52 - Pain, unspecified Status: Acute (3) Hyperglycemia: Code(s): R73.9 - Hyperglycemia, unspecified Status: Acute (4) Obstructive sleep apnea syndrome: Code(s): G47.33 - Obstructive sleep apnea (adult) (pediatric) Status: Acute (5) Morbid obesity: Code(s): E66.01 - Morbid (severe) obesity due to excess calories Status: Acute DS: Summary Hospital Course Hospital Course: # closed fracture distal radius and ulna: The patient presents with left wrist pain after a fall and found to have a comminuted distal radial and ulnar fracture status post reduction and splinting in the ER.? Admitted for uncontrolled pain. Orthopedic surgery was consulted and s/p ORIF 11/13/2021 further care per orthopedics On Percocet and ibuprofen as needed # intractable pain: As above. Requiring IV pain medication. Transition to oral opiates and ibuprofen # hyperglycemia: The patient noted to have hyperglycemia with glucose to 184. Suspect related to stress response. A1c 5.4. Glucose well controlled now.? Continue to monitor with Accu-Cheks # obstructive sleep apnea syndrome: Patient with excessive daytime fatigue and persistent polycythemia. TSH normal. Outpatient sleep study in 2019 shows mild DAWIT and did not meet criteria for CPAP. STOP-BANG =2. Patient to follow up with PCP for repeat testing. # morbid obesity: BMI 47.6. Patient would benefit from healthy lifestyle. Time Spent with Patient Time attestation: Total time spent providing and/or coordinating discharge services: 45 minutes Exam Narrative: Gen - NARD Chest - lungs are clear anteriorly, nml RR CV - RRR S1/S2 Abd - Soft, NT/ND, Positive BS Ext - No pedal edema Neuro - has sensation to the left fingers. able to move fingers. fingers warm and dry Psych - Nml mood and affect Skin - Warm and dry DS: Data Data Completed and Pending Labs on day of discharge: Labs from last 24 hours 11/14/21 11/13/21 11/13/21 07:27 20:24 16:40 POC Capillary Glucose 120 H 125 H 108 H 11/13/21 11:41 POC Capillary Glucose 148 H Procedures/Treatments: Procedure Note - Detailed Date of Procedure 11/12/21 Pre-op Diagnosis Left Distal Radius & Ulnar Fractures,Pain Control Post-op Diagnosis Same Procedure Performed Open reduction internal fixation left distal radius and ulna Surgeon Ryan Holm MD Asphalt Screed Operator 1st psychiatric technician assistant Anesthesia General Indications 61-year-old woman with comminuted intra-articular fracture of the left distal radius and ulna.? Presents for operative treatment.? She has numbness of the small and ring finger noted preoperatively.? No lacerations or wounds noted.? Discussed with patient plan for reduction internal fixation and continued evaluation of the ulnar nerve. Findings Comminuted fracture distal radius with multiple fragments and intra-articular extension.? Comminuted fracture distal ulna. Description of Procedure After informed consent the operative extremity was marked in the preoperative holding area.? Patient received intravenous antibiotics.? Patient ta
[2021-11-14 11:46] LABS: Glucose Point of Care 103 mg/dl (65-105)
[2021-11-14 15:54] LABS: Vitamin D 1,25 (OH)2 Total 81 pg/mL (18-72); Vitamin D2 1,25 (OH)2 <8 pg/mL; Vitamin D3 1,25 (OH)2 81 pg/mL
== END 2021-11-14 13:15 | disposition home or self-care (01) | DRG 511 ==
LOC: ANHED 22:39 → ANH3MEDSUR 22:52
PROVIDERS: Orthopaedic Surgery; Admitting Provider Internal Medicine; Emergency Provider Emergency Medicine; PCP Family Medicine; Visit Provider Internal Medicine
PROC: 0PSJ04Z Reposition Left Radius with Internal Fixation Device, Open Approach (ICD-10-PCS; CPT 25575; principal; 2021-11-12 13:00)
DX: S52.572A Other intraarticular fracture of lower end of left radius, initial encounter for closed fracture (principal); Z68.42 Body mass index [BMI] 45.0-49.9, adult; S52.252A Displaced comminuted fracture of shaft of ulna, left arm, initial encounter for closed fracture; W01.198A Fall on same level from slipping, tripping and stumbling with subsequent striking against other object, initial encounter; R73.9 Hyperglycemia, unspecified; D75.1 Secondary polycythemia; E66.01 Morbid (severe) obesity due to excess calories; E78.5 Hyperlipidemia, unspecified; G47.33 Obstructive sleep apnea (adult) (pediatric); G25.81 Restless legs syndrome; J44.9 Chronic obstructive pulmonary disease, unspecified; K21.9 Gastro-esophageal reflux disease without esophagitis; M85.80 Other specified disorders of bone density and structure, unspecified site; M47.817 Spondylosis without myelopathy or radiculopathy, lumbosacral region; M17.12 Unilateral primary osteoarthritis, left knee; Z79.82 Long term (current) use of aspirin; Z86.16 Personal history of COVID-19
CPT/HCPCS: 36415; 73100; 73110; 80048; 82652; 82948; 83036; 84443; 85025; 96361; 96374; 96375; 96376; 97161; 97165; 97530; 97535; 99199; 99285; A4565; A9270; C1713; G0378; J0690; J1170; J1885; J2250; J2405; J2704; J3010; J7030; J7120

== ENCOUNTER 2021-12-04 09:53 | Outpatient (CLI) | payer BC, SELFPAY ==
--- NOTE | ~2021-12-04 | MM_ITS ---
EXAMINATION: MM screening [facility] BI w naif HISTORY: Screening mammogram TECHNIQUE: Craniocaudal and mediolateral oblique 3-D tomosynthesis images were obtained and synthetic 2-D images were generated. CAD analysis was submitted and interpreted. COMPARISON: 07/12/2020, 11/08/2018, 11/03/2018, 10/19/2017 BREAST PARENCHYMAL COMPOSITION: The breasts are almost entirely fatty. FINDINGS: No suspicious mass, calcification, or architectural distortion are identified in either concepción ast to suggest malignancy. There has been no suspicious interval change. IMPRESSION: 1. No mammographic evidence of malignancy. 2. Recommend routine screening mammography in one year. BI-RADS Category 1: Negative Reviewed, dictated and finalized at location A.
--- NOTE | ~2021-12-04 | DEXA_ITS ---
Bone Density Report Name: REMY CHRISTENSEN Age: 61 Sex: Female Ethnicity: White Date of : 1960 Indication: postmenopausal; screening for osteoporosis; height loss; prior fracture; Referring Provider: FAUSTINA, BYRON Timmons Study: Bone densitometry was performed. Exam Date: December 04, 2021 Accession number: [id number] Bone Density: Region BMD T-score Z-score Classification AP Spine(L1-L4) 1.207 1.5 2.9 Normal Femoral Neck (Left) 0.838 -0.1 1.2 Normal Total Hip (Left) 0.966 0.2 1.2 Normal Femoral Neck (Right) 0.611 -2.1 -0.8 Osteopenia Total Hip (Right) 0.817 -1.0 0.0 Normal Total Hip Mean 0.891 -0.4 0.6 Normal World Health Organization criteria for BMD impression classify patients as: Normal (T-score at or above -1.0), Osteopenia (T-score between -1.0 and -2.5), or Osteoporosis (T-score at or below -2.5). 10-year Fracture Risk(1): Major Osteoporotic Fracture 15% Hip Fracture 2.0% Reported Risk Factors: [place] (), Neck BMD=0.611, BMI=45.2, previous fracture Input outside FRAX(R) limits. Adjusted to:Crauur=214 kg (1) FRAX(R) Version 3.08. Fracture probability calculated for an untreated patient. Fracture probability may be lower if the patient has received treatment. Clinical Information Provided by Patient: Has had a low trauma fracture Patient maximum height was 67 Menopause Age: 55 No regular weight bearing exercise Onset of menses at age 15 Number of children 0 Impression: The patient has low bone mass, based on the Right Femoral Neck T-score. The patient has an estimated ten-year risk of hip fracture of 2% and an estimated ten-year risk of major fracture of 15%, based on the WHO FRAX algorithm. The patient has risk factors, including: previous fracture. Discussion: BONE DENSITY IS LOW AT ONE OR MORE SKELETAL SITES. This patient's lowest T-score is low at one or more skeletal sites. It meets the World Health Organization's (WHO) criteria for ?low bone mass? (T-score between -1.0 and -2.5). The patient's 10-year risk of fracture as calculated by FRAX is less than the threshold where pharmacological therapy is recommended by the National Osteoporosis Foundation (NOF). However, all treatment decisions require clinical judgment and consideration of individual patient factors, including patient preferences, comorbidities, previous drug use, risk factors not captured in the FRAX model (e.g., frailty, falls, vitamin D deficiency, increased bone turnover, interval significant decline in bone density) and possible under or overestimation of fracture risk by FRAX. The patient should follow a healthful lifestyle (good nutrition with adequate calcium and vitamin D, and appropriate weight-bearing exercise). Follow-Up: Consider repeating this study in 2 to 3 years to
== END 2021-12-04 09:54 | disposition home or self-care (01) ==
LOC: ANHIMG 09:55
PROVIDERS: PCP Family Medicine; Visit Provider Family Medicine
DX: Z12.31 Encounter for screening mammogram for malignant neoplasm of breast (principal); Z78.0 Asymptomatic menopausal state; M85.851 Other specified disorders of bone density and structure, right thigh
CPT/HCPCS: 77063; 77067; 77080

== ENCOUNTER 2022-01-27 01:52 | Day surgery (SDC) | payer BC, SELFPAY ==
[2022-01-16 14:10] VITALS: BMI 46.3
--- NOTE | 2022-01-26 09:39 | WPDANESEPPF ---
Anes - Initial Pre Proc Eval Procedure: Operation Date: 01/27/22 07:30 Proposed Procedures p Screening Colonoscopy - Jenaro Xavier MD Date/Time: 01/26/22 09:39 Surgeon: Jenaro Xavier MD Pre Op Diagnosis: neoplasm screening Patient Data Age: 61 Gender: F Height: 1.7 m Weight: 134 kg Allergies Allergy/AdvReac Type Severity Reaction Status Date / Time No Known Allergies Allergy Verified 01/27/22 06:18 Home Medications Medication Instructions Recorded Confirmed Type aspirin 81 mg chewable tablet 81 mg PO DAILY 05/07/20 01/16/22 History cetirizine 10 mg tablet (Zyrtec) 10 mg PO DAILY 08/22/21 01/16/22 History coenzyme Q10 200 mg capsule 200 mg PO DAILY 11/10/21 01/16/22 History semaglutide 1 mg/dose (4 mg/3 mL) 1 mg (0.75 mL) subcut WEEKLY #3 mL 12/26/21 01/16/22 Rx subcutaneous pen injector (Ozempic) ascorbic acid (vitamin C) 500 mg 250 mg PO DAILY 01/13/22 01/16/22 History tablet calcium carbonate 600 mg-vitamin 1 cap PO DAILY 01/13/22 01/16/22 History D3 12.5 mcg (500 unit) capsule (Calcium 600 with Vitamin D3) meloxicam 15 mg tablet 15 mg PO DAILY #90 tabs 01/13/22 01/16/22 Rx furosemide 20 mg tablet 20 mg PO DAILY 01/16/22 01/16/22 History omeprazole 40 mg capsule,delayed 40 mg PO DAILY PRN Acid Reflux 01/16/22 01/16/22 History release betamethasone dipropionate 0.05 % 1 applic topical BID PRN rash #60 01/20/22 01/27/22 Rx lotion mL Patient hx anesthesia problems: none Family hx anesthesia problems: none Results Review: All pre-operative results and documents have been reviewed as part of the pre-operative evaluation. [facility] Past Medical History Medical History (Updated 01/26/22 @ 09:39 by Florian Hamilton MD) Allergic rhinitis Arthritis Asthma Chronic GERD Claustrophobia COVID-19 (08/2021) Degenerative disc disease at L5-S1 level Noted on MRI of the hip and pelvis 03/2018 Hyperglycemia Glucose 115 June 2019 Hyperlipidemia Mammogram normal 07/12/2020 Mild chronic obstructive pulmonary disease Mild obstructive ventilatory impairment noted on PFTs 11/2018 Morbid obesity Morbid obesity with BMI of 45.0-49.9, adult Obstructive sleep apnea syndrome Polysomnogram 10/2018 demonstrated mild obstructive sleep apnea with hypoxic events down to 82% but did not meet criteria for CPAP titration. Osteoarthritis of right knee Osteopenia after menopause Noted on x-rays April 2020 patient was referred for DEXA scan September 2021 Polycythemia Postmenopausal Weight loss counseling, encounter for Surgical History Surgical History H/O wrist surgery ORIF Left wrist 11/12/[address] Holm History of colonoscopy (04/2012) Diverticulum transverse colon Family History Family History Father Diabetes mellitus Hypertension Acute myocardial infarction, Onset Age: 45 Mother , 67 Diabetes mellitus Other Depression Heart disease Social History Social History (Updated 01/13/22 @ 14:50 by Orquidea Jerome [facility]) Social History: Code status: Full code Surrogate decision maker: Smoking status: Never smoker Second hand tobacco smoke exposure: No Alcohol intake: current Drinks per week: 2 Alcohol use details: beers Substance use: never Substance use type: does not use Lack of Transportation: No Lack of Food: Never True Current Housing: I Have Housing Concerned About Future Housing: No Difficulty Paying Gas/Electric Bills: No Difficulty Paying for Meds: No Currently Unemployed: No Education: Master's Degree or Higher Difficulty w/ Childcare or Family Care: No Living arrangements: with family Additional living arrangements comments: She lives with her they have been together for 30 years. She does not have any biological children. They have a small dog.
[2022-01-27 06:19] VITALS: BMI 46.1
[2022-01-27] MEDS: LACTATED RINGERS 1,000 ML 150 ML IV CONT (06:27)
[2022-01-27 06:28] VITALS: BP 136/94; PULSE 97; RESP 20; TEMP 36.3; O2SAT 99
--- NOTE | 2022-01-27 07:29 | PM.HPGS ---
History of Present Illness History of Present Illness Consent: Risks, benefits, and alternatives have been discussed and questions answered. Patient agrees to proceed with procedure. Chief complaint: neoplasm screening Narrative: Genet Hickman is a 61 year old female here for screening colonoscopy, last one 10 years ago Review of Systems Constitutional: Constitutional: Denies headache(s) and Denies weakness Eyes: Eyes: Denies blurry vision ENT: Reports Normal hearing present, Denies headache(s) and Denies neck pain Cardiovascular: Cardiovascular: Denies chest pain and Denies dyspnea Respiratory: Respiratory: Denies dyspnea Gastrointestinal: Gastrointestinal: Reports no additional gastrointestinal complaints Genitourinary: Genitourinary: Denies dysuria Musculoskeletal: Musculoskeletal: Denies neck pain Integumentary/Breasts: Skin/Breast: Denies dry skin Neurologic: Reports Normal hearing present, Denies headache(s) and Denies weakness Psychiatric: Psychiatric: Denies anxiety Endocrine: Endocrine: Denies change in body appearance Hematologic/Lymphatic: Hematologic/Lymphatic: Denies easy bleeding Allergic/Immunologic: Allergic/Immunologic: Denies urticaria PMFSH Past Medical History Medical History (Updated 01/26/22 @ 09:39 by Florian Hamilton MD) Allergic rhinitis Arthritis Asthma Chronic GERD Claustrophobia COVID-19 (08/2021) Degenerative disc disease at L5-S1 level Noted on MRI of the hip and pelvis 03/2018 Hyperglycemia Glucose 115 June 2019 Hyperlipidemia Mammogram normal 07/12/2020 Mild chronic obstructive pulmonary disease Mild obstructive ventilatory impairment noted on PFTs 11/2018 Morbid obesity Morbid obesity with BMI of 45.0-49.9, adult Obstructive sleep apnea syndrome Polysomnogram 10/2018 demonstrated mild obstructive sleep apnea with hypoxic events down to 82% but did not meet criteria for CPAP titration. Osteoarthritis of right knee Osteopenia after menopause Noted on x-rays April 2020 patient was referred for DEXA scan September 2021 Polycythemia Postmenopausal Weight loss counseling, encounter for Surgical History Surgical History H/O wrist surgery ORIF Left wrist 11/12/[address] Holm History of colonoscopy (04/2012) Diverticulum transverse colon Family History Family History Father Diabetes mellitus Hypertension Acute myocardial infarction, Onset Age: 45 Mother , 67 Diabetes mellitus Other Depression Heart disease Social History Social History (Updated 01/13/22 @ 14:50 by Orquidea Jerome [facility]) Social History: Code status: Full code Surrogate decision maker: Smoking status: Never smoker Second hand tobacco smoke exposure: No Alcohol intake: current Drinks per week: 2 Alcohol use details: beers Substance use: never Substance use type: does not use Lack of Transportation: No Lack of Food: Never True Current Housing: I Have Housing Concerned About Future Housing: No Difficulty Paying Gas/Electric Bills: No Difficulty Paying for Meds: No Currently Unemployed: No Education: Master's Degree or Higher Difficulty w/ Childcare or Family Care: No Living arrangements: with family Additional living arrangements comments: She lives with her they have been together for 30 years. She does not have any biological children. They have a small dog. 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 She has worked at home since COVID started. Gender identity (if verbalized by the patient): Female Spiritual care concerns: No Agree to blood products: Yes Meds Home Medications and Allergies Home Medications Medication Instructions Recorded Confirmed Type aspirin 81 mg chewa
[2022-01-27 07:57] VITALS: BP 92/53; PULSE 89; RESP 26; O2SAT 96
[2022-01-27 08:02] VITALS: BP 95/71; PULSE 87; RESP 26; O2SAT 96
[2022-01-27 08:13] VITALS: BP 114/76; PULSE 78; RESP 21; O2SAT 99
== END 2022-01-27 08:25 | disposition home or self-care (01) ==
PROVIDERS: PCP Family Medicine; Visit Provider Internal Medicine Gastroenterology
PROC: 0DJD8ZZ Inspection of Lower Intestinal Tract, Via Natural or Artificial Opening Endoscopic (ICD-10-PCS; CPT 45378; principal; 2022-01-27 07:30)
DX: Z12.11 Encounter for screening for malignant neoplasm of colon (principal); K57.30 Diverticulosis of large intestine without perforation or abscess without bleeding; D12.3 Benign neoplasm of transverse colon; D12.4 Benign neoplasm of descending colon; K64.8 Other hemorrhoids; Z79.82 Long term (current) use of aspirin; Z79.899 Other long term (current) drug therapy; J44.9 Chronic obstructive pulmonary disease, unspecified; E78.5 Hyperlipidemia, unspecified; K21.9 Gastro-esophageal reflux disease without esophagitis; G47.33 Obstructive sleep apnea (adult) (pediatric); M85.80 Other specified disorders of bone density and structure, unspecified site; E66.01 Morbid (severe) obesity due to excess calories; Z68.42 Body mass index [BMI] 45.0-49.9, adult
CPT/HCPCS: 45385; 88305; J2704; J7120

== ENCOUNTER 2022-08-01 09:08 | Outpatient (CLI) | payer BC, SELFPAY ==
[2022-08-01 18:37] LABS: Alanine Aminotransferase 27 U/L (6-35); Albumin Level 3.6 g/dL (3.5-5.1); Alkaline Phosphatase 110 U/L (38-126); Anion Gap 3 mmol/L (8-16); Aspartate Amino Transferase 42 U/L (14-36); Bilirubin,Total 0.7 mg/dL (0.2-1.3); Blood Urea Nitrogen 12 mg/dL (7-17); Calcium 9.4 mg/dL (8.4-10.2); Carbon Dioxide 33 mmol/L (22-30); Chloride 104 mmol/L (98-107); Cholesterol 167 mg/dL (0-200); Estimated Glomerular Filt Rate > 60; Glucose 95 mg/dL (65-110); HDL Direct 41 mg/dL; Sodium 140 mmol/L (137-145); Triglycerides 126 mg/dL (<150)
[2022-08-01 18:38] LABS: Hematocrit 48.7 % (37.0-47.0); Hemoglobin 16.6 g/dL (12.0-15.0); Mean Corpuscular HGB Conc 34.1 g/dl (32-36); Mean Corpuscular Hemoglobin 33.1 pg (26-34); Mean Corpuscular Volume 97.2 fl (80-100); Mean Platelet Volume 10.8 fl (7.4-10.4); Platelet Count Result 243 k/mm3 (150-375); Red Blood Count 5.01 M/mm3 (4.2-5.4); Red Cell Distribution Width 12.8 % (11.5-14.5); White Blood Count 5.9 K/mm3 (4.5-10.0)
[2022-08-01 18:51] LABS: LDL Cholesterol Direct 101 mg/dL
== END 2022-08-01 09:09 | disposition home or self-care (01) ==
LOC: ANHGOSHLAB 09:09
PROVIDERS: PCP Family Medicine; Visit Provider Family Medicine
DX: E78.5 Hyperlipidemia, unspecified (principal); E66.01 Morbid (severe) obesity due to excess calories; R73.9 Hyperglycemia, unspecified
CPT/HCPCS: 36415; 80053; 80061; 84443; 85027

== ENCOUNTER 2022-12-01 09:13 | Outpatient (CLI) | payer BC, SELFPAY ==
[2022-12-01 19:51] LABS: Alanine Aminotransferase 30 U/L (6-35); Albumin Level 3.7 g/dL (3.5-5.1); Alkaline Phosphatase 105 U/L (38-126); Anion Gap 3 mmol/L (8-16); Aspartate Amino Transferase 44 U/L (14-36); Bilirubin,Total 0.6 mg/dL (0.2-1.3); Blood Urea Nitrogen 12 mg/dL (7-17); Calcium 10.2 mg/dL (8.4-10.2); Carbon Dioxide 32 mmol/L (22-30); Chloride 103 mmol/L (98-107); Cholesterol 171 mg/dL (0-200); Estimated Glomerular Filt Rate > 60; Glucose 102 mg/dL (65-110); HDL Direct 41 mg/dL; Potassium 4.1 mmol/L (3.4-5.0); Sodium 138 mmol/L (137-145); Triglycerides 112 mg/dL (<150)
[2022-12-01 20:01] LABS: LDL Cholesterol Direct 103 mg/dL
== END 2022-12-01 09:14 | disposition home or self-care (01) ==
LOC: ANHGOSHLAB 09:14
PROVIDERS: PCP Family Medicine; Visit Provider Family Medicine
DX: E66.01 Morbid (severe) obesity due to excess calories (principal); R73.9 Hyperglycemia, unspecified; E78.5 Hyperlipidemia, unspecified
CPT/HCPCS: 36415; 80053; 80061; 84443

== ENCOUNTER 2022-12-11 11:51 | Outpatient (CLI) | payer BC, SELFPAY ==
[2022-12-11 14:06] LABS: Toxigenic C. Diff NEGATIVE (NEGATIVE)
== END 2022-12-11 11:52 | disposition home or self-care (01) ==
PROVIDERS: PCP Family Medicine; Visit Provider Nurse Practitioner Family
DX: R19.7 Diarrhea, unspecified (principal)
CPT/HCPCS: 87045; 87177; 87209; 87427; 87449; 87493

== ENCOUNTER 2022-12-12 10:14 | Outpatient (CLI) | payer BC, SELFPAY ==
--- NOTE | ~2022-12-12 | MM_ITS ---
EXAMINATION: MM screening [facility] BI w naif HISTORY: Screening mammogram TECHNIQUE: Craniocaudal and mediolateral oblique 3-D tomosynthesis images were obtained and synthetic 2-D images were generated. CAD analysis was submitted and interpreted. COMPARISON: 12/04/2021, 07/12/2020, 11/03/2018 BREAST PARENCHYMAL COMPOSITION: The breasts are almost entirely fatty. FINDINGS: No suspicious mass, calcification, or architectural distortion are identified in either concepción ast to suggest malignancy. There has been no suspicious interval change. IMPRESSION: 1. No mammographic evidence of malignancy. 2. Recommend routine screening mammography in one year. BI-RADS Category 1: Negative Reviewed, dictated and finalized at location A.
== END 2022-12-12 10:15 | disposition home or self-care (01) ==
LOC: ANHIMG 10:17
PROVIDERS: PCP Family Medicine; Visit Provider Family Medicine
DX: Z12.31 Encounter for screening mammogram for malignant neoplasm of breast (principal)
CPT/HCPCS: 77063; 77067

== ENCOUNTER 2023-01-14 01:17 | Day surgery (SDC) | payer BC, SELFPAY ==
[2022-12-30 13:26] VITALS: BMI 43.1
--- NOTE | 2023-01-12 10:29 | SUR.PREOP ---
Patient called regarding upcoming procedure. Message left on patient's voicemail regarding preop instructions, appointment times, and procedure prep.
[2023-01-14 07:08] VITALS: BP 126/86; PULSE 64; RESP 18; TEMP 36.4; O2SAT 100; BMI 43.1
[2023-01-14] MEDS: LACTATED RINGERS 1,000 ML 150 ML IV CONT (07:20)
--- NOTE | 2023-01-14 07:30 | WPDANESEPPF ---
Anes - Initial Pre Proc Eval Procedure: Operation Date: 01/14/23 08:00 Proposed Procedures p Esophagogastroduodenoscopy - Jenaro Xavier MD Date/Time: 01/14/23 07:30 Surgeon: Jenaro Xavier MD Pre Op Diagnosis: N&V,Diarrhea,abdominal distension,eructation Patient Data Age: 62 Gender: F Height: 1.7 m Weight: 125 kg Last Vital Signs Temp 97.5 F L 01/14/23 07:08 Pulse 64 01/14/23 07:08 Resp 18 01/14/23 07:08 BP 126/86 01/14/23 07:08 Pulse Ox 100 01/14/23 07:08 O2 Del Method Room Air 01/14/23 07:08 Allergies Allergy/AdvReac Type Severity Reaction Status Date / Time No Known Allergies Allergy Verified 01/14/23 07:04 Home Medications Medication Instructions Recorded Confirmed Type aspirin 81 mg chewable tablet 81 mg PO DAILY 05/07/20 01/14/23 History cetirizine 10 mg tablet (Zyrtec) 10 mg PO DAILY 08/22/21 01/14/23 History coenzyme Q10 200 mg capsule 200 mg PO DAILY 11/10/21 01/14/23 History ascorbic acid (vitamin C) 500 mg 250 mg PO DAILY 01/13/22 01/14/23 History tablet calcium carbonate 600 mg-vitamin 1 cap PO DAILY 01/13/22 01/14/23 History D3 12.5 mcg (500 unit) capsule (Calcium 600 with Vitamin D3) furosemide 20 mg tablet See Rx Instructions .Route 07/29/22 01/14/23 Rx .COMPLEX #90 tabs betamethasone dipropionate 0.05 % See Rx Instructions .Route 12/08/22 01/14/23 Rx lotion .COMPLEX #60 mL celecoxib 100 mg capsule (Celebrex) 100 mg PO BID PRN Pain 12/30/22 01/14/23 History Patient hx anesthesia problems: none Family hx anesthesia problems: none Results Review: All pre-operative results and documents have been reviewed as part of the pre-operative evaluation. [facility] Past Medical History Medical History Allergic rhinitis Arthritis Asthma Chronic GERD Claustrophobia COVID-19 (08/2021) Degenerative disc disease at L5-S1 level Noted on MRI of the hip and pelvis 03/2018 Fracture of metacarpal base of left hand, closed Hyperglycemia Glucose 115 June 2019 Hyperlipidemia Mammogram normal 07/12/2020 Mild chronic obstructive pulmonary disease Mild obstructive ventilatory impairment noted on PFTs 11/2018 Morbid obesity Morbid obesity with BMI of 45.0-49.9, adult Obstructive sleep apnea syndrome Polysomnogram 10/2018 demonstrated mild obstructive sleep apnea with hypoxic events down to 82% but did not meet criteria for CPAP titration. Osteoarthritis of right knee Osteopenia after menopause Noted on x-rays April 2020 patient was referred for DEXA scan September 2021 Polycythemia Postmenopausal Weight loss counseling, encounter for Surgical History Surgical History H/O wrist surgery ORIF Left wrist 11/12/[address] Holm History of colonoscopy (04/2012) Diverticulum transverse colon Family History Family History Father Diabetes mellitus Hypertension Acute myocardial infarction, Onset Age: 45 Mother , 67 Diabetes mellitus Other Depression Heart disease Social History Social History Social History: Code status: Full code Surrogate decision maker: Smoking status: Never smoker Second hand tobacco smoke exposure: No Alcohol intake: current Drinks per week: 3 Alcohol use details: Beer Substance use: never Substance use type: does not use Lack of Transportation: No Lack of Food: Never True Current Housing: I Have Housing Concerned About Future Housing: No Difficulty Paying Gas/Electric Bills: No Difficulty Paying for Meds: No Currently Unemployed: No Education: Master's Degree or Higher Difficulty w/ Childcare or Family Care: No Living arrangements: with family Additional living arrangements comments: She lives with
--- NOTE | 2023-01-14 08:30 | PM.HPGS ---
History of Present Illness History of Present Illness Consent: Risks, benefits, and alternatives have been discussed and questions answered. Patient agrees to proceed with procedure. Chief complaint: N&V,Diarrhea,abdominal distension,eructation Narrative: Genet Hickman is a 62 year old female here for n/v for 2 months also diarrhea with stool negative for infection, never had egd Review of Systems Constitutional: Constitutional: Denies headache(s) and Denies weakness Eyes: Eyes: Denies blurry vision ENT: Reports Normal hearing present, Denies headache(s) and Denies neck pain Cardiovascular: Cardiovascular: Denies chest pain and Denies dyspnea Respiratory: Respiratory: Denies dyspnea Gastrointestinal: Gastrointestinal: Reports no additional gastrointestinal complaints Genitourinary: Genitourinary: Denies dysuria Musculoskeletal: Musculoskeletal: Denies neck pain Integumentary/Breasts: Skin/Breast: Denies dry skin Neurologic: Reports Normal hearing present, Denies headache(s) and Denies weakness Psychiatric: Psychiatric: Denies anxiety Endocrine: Endocrine: Denies change in body appearance Hematologic/Lymphatic: Hematologic/Lymphatic: Denies easy bleeding Allergic/Immunologic: Allergic/Immunologic: Denies urticaria PMFSH Past Medical History Medical History Allergic rhinitis Arthritis Asthma Chronic GERD Claustrophobia COVID-19 (08/2021) Degenerative disc disease at L5-S1 level Noted on MRI of the hip and pelvis 03/2018 Fracture of metacarpal base of left hand, closed Hyperglycemia Glucose 115 June 2019 Hyperlipidemia Mammogram normal 07/12/2020 Mild chronic obstructive pulmonary disease Mild obstructive ventilatory impairment noted on PFTs 11/2018 Morbid obesity Morbid obesity with BMI of 45.0-49.9, adult Obstructive sleep apnea syndrome Polysomnogram 10/2018 demonstrated mild obstructive sleep apnea with hypoxic events down to 82% but did not meet criteria for CPAP titration. Osteoarthritis of right knee Osteopenia after menopause Noted on x-rays April 2020 patient was referred for DEXA scan September 2021 Polycythemia Postmenopausal Weight loss counseling, encounter for Surgical History Surgical History H/O wrist surgery ORIF Left wrist 11/12/[address] Holm History of colonoscopy (04/2012) Diverticulum transverse colon Family History Family History Father Diabetes mellitus Hypertension Acute myocardial infarction, Onset Age: 45 Mother , 67 Diabetes mellitus Other Depression Heart disease Social History Social History Social History: Code status: Full code Surrogate decision maker: Smoking status: Never smoker Second hand tobacco smoke exposure: No Alcohol intake: current Drinks per week: 3 Alcohol use details: Beer Substance use: never Substance use type: does not use Lack of Transportation: No Lack of Food: Never True Current Housing: I Have Housing Concerned About Future Housing: No Difficulty Paying Gas/Electric Bills: No Difficulty Paying for Meds: No Currently Unemployed: No Education: Master's Degree or Higher Difficulty w/ Childcare or Family Care: No Living arrangements: with family Additional living arrangements comments: She lives with her they have been together for 30 years. She does not have any biological children. They have a small dog. 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 She has worked at home since COVID started. Gender identity (if verbalized by the patient): Female Spiritual care concerns: No Agree to blood p
[2023-01-14] MEDS: BENZOCAINE (*SP) 60 ML SPRAY CAN (HURRICAINE) 1 SPRAY MUCOUS MEM (08:33)
[2023-01-14 08:50] VITALS: BP 94/68; PULSE 79; RESP 20; O2SAT 98
[2023-01-14 09:00] VITALS: BP 125/80; PULSE 69; RESP 20; O2SAT 100
[2023-01-14 09:10] VITALS: BP 123/71; PULSE 74; RESP 20; O2SAT 100
== END 2023-01-14 09:15 | disposition home or self-care (01) ==
PROVIDERS: PCP Family Medicine; Visit Provider Internal Medicine Gastroenterology
PROC: 0DJ08ZZ Inspection of Upper Intestinal Tract, Via Natural or Artificial Opening Endoscopic (ICD-10-PCS; CPT 43235; principal; 2023-01-14 08:00)
DX: K29.50 Unspecified chronic gastritis without bleeding (principal); K31.5 Obstruction of duodenum; J44.9 Chronic obstructive pulmonary disease, unspecified; Z79.82 Long term (current) use of aspirin; G47.33 Obstructive sleep apnea (adult) (pediatric); E66.01 Morbid (severe) obesity due to excess calories; Z68.41 Body mass index [BMI] 40.0-44.9, adult
CPT/HCPCS: 43239; 43245; 88305; C1726; J2704; J7120

== ENCOUNTER 2023-03-11 01:18 | Day surgery (SDC) | payer OTHER, SELFPAY ==
[2023-02-11 11:50] VITALS: BMI 42.3
--- NOTE | 2023-03-09 13:04 | SUR.PREOP ---
Patient called regarding upcoming procedure. Pt updated on arrival date and time. All questions answered.
[2023-03-11 06:44] VITALS: BP 148/84; PULSE 80; RESP 20; TEMP 35.8; O2SAT 99
[2023-03-11] MEDS: LACTATED RINGERS 1,000 ML 150 ML IV CONT (06:59)
--- NOTE | 2023-03-11 07:57 | PM.HPGS ---
History of Present Illness History of Present Illness Consent: Risks, benefits, and alternatives have been discussed and questions answered. Patient agrees to proceed with procedure. Chief complaint: Duodenal Stenosis, Gastritis Narrative: Genet Hickman is a 62 year old female here for egd, she had erosive gastritis and duodenal stenosis that was dilated with balloon, feeling much better since last EGD without any more nausea or discomfort, also using ppi twice daily Review of Systems Constitutional: Constitutional: Denies headache(s) and Denies weakness Eyes: Eyes: Denies blurry vision ENT: Reports Normal hearing present, Denies headache(s) and Denies neck pain Cardiovascular: Cardiovascular: Denies chest pain and Denies dyspnea Respiratory: Respiratory: Denies dyspnea Gastrointestinal: Gastrointestinal: Reports no additional gastrointestinal complaints Genitourinary: Genitourinary: Denies dysuria Musculoskeletal: Musculoskeletal: Denies neck pain Integumentary/Breasts: Skin/Breast: Denies dry skin Neurologic: Reports Normal hearing present, Denies headache(s) and Denies weakness Psychiatric: Psychiatric: Denies anxiety Endocrine: Endocrine: Denies change in body appearance Hematologic/Lymphatic: Hematologic/Lymphatic: Denies easy bleeding Allergic/Immunologic: Allergic/Immunologic: Denies urticaria PMFSH Past Medical History Medical History (Updated 03/11/23 @ 07:59 by Jenaro Xavier MD) Allergic rhinitis Arthritis Asthma Chronic GERD Claustrophobia COVID-19 (08/2021) Degenerative disc disease at L5-S1 level Noted on MRI of the hip and pelvis 03/2018 Duodenal stenosis Fracture of metacarpal base of left hand, closed Hyperglycemia Glucose 115 June 2019 Hyperlipidemia Mammogram normal 07/12/2020 Mild chronic obstructive pulmonary disease Mild obstructive ventilatory impairment noted on PFTs 11/2018 Morbid obesity Morbid obesity with BMI of 45.0-49.9, adult Obstructive sleep apnea syndrome Polysomnogram 10/2018 demonstrated mild obstructive sleep apnea with hypoxic events down to 82% but did not meet criteria for CPAP titration. Osteoarthritis of right knee Osteopenia after menopause Noted on x-rays April 2020 patient was referred for DEXA scan September 2021 Polycythemia Postmenopausal Weight loss counseling, encounter for Surgical History Surgical History H/O wrist surgery ORIF Left wrist 11/12/[address] Holm History of colonoscopy (04/2012) Diverticulum transverse colon Family History Family History Father Diabetes mellitus Hypertension Acute myocardial infarction, Onset Age: 45 Mother , 67 Diabetes mellitus Other Depression Heart disease Social History Social History Social History: Code status: Full code Surrogate decision maker: Smoking status: Never smoker Second hand tobacco smoke exposure: No Alcohol intake: current Drinks per week: 3 Alcohol use details: Occasionally Substance use: never Substance use type: does not use Lack of Transportation: No Lack of Food: Never True Current Housing: I Have Housing Concerned About Future Housing: No Difficulty Paying Gas/Electric Bills: No Difficulty Paying for Meds: No Currently Unemployed: No Education: Master's Degree or Higher Difficulty w/ Childcare or Family Care: No Living arrangements: other Additional living arrangements comments: with sp Occupation/Education: occupation Additional occupation/education comments: 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 She has worked at home since COVID started. Gender identity (if verbalized by the patient): Female Spiritual care concerns: No Agree to blood products: Yes
--- NOTE | 2023-03-11 08:04 | WPDANESEPPF ---
Anes - Initial Pre Proc Eval Procedure: Operation Date: 03/11/23 08:00 Proposed Procedures p Esophagogastroduodenoscopy - Jenaro Xavier MD Date/Time: 03/11/23 08:04 Surgeon: Jenaro Xavier MD Pre Op Diagnosis: Duodenal Stenosis, Gastritis Patient Data Age: 62 Gender: F Height: 1.7 m Weight: 123.8 kg Last Vital Signs Temp 96.4 F L 03/11/23 06:44 Pulse 80 03/11/23 06:44 Resp 20 03/11/23 06:44 BP 148/84 H 03/11/23 06:44 Pulse Ox 99 03/11/23 06:44 O2 Del Method Room Air 03/11/23 06:44 Allergies Allergy/AdvReac Type Severity Reaction Status Date / Time No Known Allergies Allergy Verified 03/11/23 06:43 Home Medications Medication Instructions Recorded Confirmed Type aspirin 81 mg chewable tablet 81 mg PO DAILY 05/07/20 02/11/23 History cetirizine 10 mg tablet (Zyrtec) 10 mg PO DAILY 08/22/21 02/11/23 History coenzyme Q10 200 mg capsule 200 mg PO DAILY 11/10/21 02/11/23 History ascorbic acid (vitamin C) 500 mg 250 mg PO DAILY 01/13/22 02/11/23 History tablet calcium carbonate 600 mg-vitamin 1 cap PO DAILY 01/13/22 02/11/23 History D3 12.5 mcg (500 unit) capsule (Calcium 600 with Vitamin D3) furosemide 20 mg tablet See Rx Instructions .Route 07/29/22 02/11/23 Rx .COMPLEX #90 tabs betamethasone dipropionate 0.05 % See Rx Instructions .Route 12/08/22 02/11/23 Rx lotion .COMPLEX #60 mL celecoxib 100 mg capsule (Celebrex) 100 mg PO BID PRN Pain 12/30/22 02/11/23 History pantoprazole 40 mg tablet,delayed 40 mg PO Q12H #60 tabs 01/14/23 02/11/23 Rx release Patient hx anesthesia problems: none Family hx anesthesia problems: none Results Review: All pre-operative results and documents have been reviewed as part of the pre-operative evaluation. [facility] Past Medical History Medical History (Updated 03/11/23 @ 07:59 by Jenaro Xavier MD) Allergic rhinitis Arthritis Asthma Chronic GERD Claustrophobia COVID-19 (08/2021) Degenerative disc disease at L5-S1 level Noted on MRI of the hip and pelvis 03/2018 Duodenal stenosis Fracture of metacarpal base of left hand, closed Hyperglycemia Glucose 115 June 2019 Hyperlipidemia Mammogram normal 07/12/2020 Mild chronic obstructive pulmonary disease Mild obstructive ventilatory impairment noted on PFTs 11/2018 Morbid obesity Morbid obesity with BMI of 45.0-49.9, adult Obstructive sleep apnea syndrome Polysomnogram 10/2018 demonstrated mild obstructive sleep apnea with hypoxic events down to 82% but did not meet criteria for CPAP titration. Osteoarthritis of right knee Osteopenia after menopause Noted on x-rays April 2020 patient was referred for DEXA scan September 2021 Polycythemia Postmenopausal Weight loss counseling, encounter for Surgical History Surgical History H/O wrist surgery ORIF Left wrist 11/12/[address] Holm History of colonoscopy (04/2012) Diverticulum transverse colon Family History Family History Father Diabetes mellitus Hypertension Acute myocardial infarction, Onset Age: 45 Mother , 67 Diabetes mellitus Other Depression Heart disease Social History Social History Social History: Code status: Full code Surrogate decision maker: Smoking status: Never smoker Second hand tobacco smoke exposure: No Alcohol intake: current Drinks per week: 3 Alcohol use details: Occasionally Substance use: never Substance use type: does not use Lack of Transportation: No Lack of Food: Never True Current Housing: I Have Housing Concerned About Future Housing: No Difficulty Paying Gas/Electric Bills: No Difficulty Paying for Meds: No Currently Unemployed: No Education: Master's Degree or Higher Difficulty w/ Childcare or Family Car
[2023-03-11 08:13] VITALS: BP 115/77; PULSE 88; RESP 20; O2SAT 97
[2023-03-11 08:23] VITALS: BP 127/83; PULSE 86; RESP 20; O2SAT 97
[2023-03-11 08:33] VITALS: BP 132/81; PULSE 76; RESP 20; O2SAT 97
--- NOTE | 2023-03-11 09:41 | SUR.OPER ---
Benzocaine spray administered per JOSSELINE Spencer request.
== END 2023-03-11 08:38 | disposition home or self-care (01) ==
PROVIDERS: PCP Family Medicine; Visit Provider Internal Medicine Gastroenterology
PROC: 0DJ08ZZ Inspection of Upper Intestinal Tract, Via Natural or Artificial Opening Endoscopic (ICD-10-PCS; CPT 43235; principal; 2023-03-11 08:00)
DX: K31.5 Obstruction of duodenum (principal); K29.70 Gastritis, unspecified, without bleeding; E78.5 Hyperlipidemia, unspecified; G47.33 Obstructive sleep apnea (adult) (pediatric); J44.9 Chronic obstructive pulmonary disease, unspecified; E66.01 Morbid (severe) obesity due to excess calories; Z68.41 Body mass index [BMI] 40.0-44.9, adult; Z79.82 Long term (current) use of aspirin
CPT/HCPCS: 43245; 43239; 88305; C1726; J2704; J7120

== ENCOUNTER 2023-07-07 12:29 | Outpatient (CLI) | payer OTHER, SELFPAY ==
--- NOTE | ~2023-07-07 | US_ITS ---
Pelvic ultrasound. Clinical History: Postmenopausal bleeding Technique: Realtime transabdominal and transvaginal scanning of the pelvis was performed. Color flow Doppler and Doppler spectral analysis were performed. Findings: The uterus is anteverted, and measures approximately 7.4 x 2.7 x 3.8. The endometrial stri pe has a thickness of 2 mm. Hypoechoic anterior wall mass measures 1.6 x 1.2 x 1.0 cm, most compatibl e with fibroid. Small amount of fluid present in the cervix. Suggestion of 4 mm cystic structure in t he lower uterine segment or cervix. Neither ovary seen. No adnexal mass seen. There is no evidence of free fluid in the cul de sac. Impression: No abnormal endometrial thickening clearly evident. 1.6 cm fibroid. Small amount of fluid in the lower uterine segment or cervix with suggestion of 4 mm cystic structure , which is nonspecific. Reviewed, dictated and finalized at [facility]. Impression: No abnormal endometrial thickening clearly evident. 1.6 cm fibroid. Small amount of fluid in the lower uterine segment or cervix with suggestion of 4 mm cystic structure, which is nonspecific.
--- NOTE | ~2023-07-07 | XR_ITS ---
EXAM: XR abdomen/kub 1V DATE: 07/07/2023 12:50 HISTORY: R31.9 - Hematuria, unspecified . COMPARISON: None available. FINDINGS: Clear lung bases. Normal bowel gas pattern. No organomegaly. No abnormal abdominal calcifi cation. Severe lumbar degenerative disc disease. Osteitis pubis. Mild bilateral hip osteoarthritis. IMPRESSION: No radiographic evidence of nephrolithiasis. Reviewed, dictated and finalized at location K.
== END 2023-07-07 12:30 ==
PROVIDERS: Visit Provider Family Medicine
DX: D25.9 Leiomyoma of uterus, unspecified (principal); Z87.442 Personal history of urinary calculi
CPT/HCPCS: 74018; 76830

== ENCOUNTER 2023-08-03 10:55 | Outpatient (CLI) | payer OTHER, SELFPAY ==
--- NOTE | ~2023-08-03 | XR_ITS ---
EXAMINATION: XR lumbar spine 2-3V DATE: 08/03/2023 11:09 INDICATION: Low back pain TECHNIQUE: Anteroposterior and lateral views of the lumbar spine, and cone-down lateral view of the l umbosacral junction were obtained. COMPARISON: None. FINDINGS: Mild lower lumbar levocurvature. Sagittal alignment is normal. Mild disc height loss at L1-L2, L2-L3 and L5-S1. There is severe lower lumbar predominant facet osteoarthritis. Moderate osteoarthritis at the bilateral sacroiliac joints. Large Schmorl's node versus central superior endplate compression fr acture at L3 with up to 50% central vertebral body height loss. Remaining vertebral body heights are normal. Moderate to severe right-sided predominant disc height loss at L4-L5. IMPRESSION: 1. Mild lower lumbar levocurvature with moderate to severe spondylosis. Reviewed, dictated and finalized at location B.
== END 2023-08-03 10:56 ==
LOC: MICIMG 10:57
PROVIDERS: PCP Family Medicine; Visit Provider Nurse Practitioner Family
DX: M47.896 Other spondylosis, lumbar region (principal)
CPT/HCPCS: 72100

== ENCOUNTER 2023-08-28 10:14 | Outpatient (CLI) | payer OTHER, SELFPAY ==
[2023-08-28 10:51] LABS: Anion Gap 9 mmol/L (4-12); Blood Urea Nitrogen 14 mg/dL (7-17); Calcium 9.7 mg/dL (8.4-10.2); Carbon Dioxide 25 mmol/L (22-30); Chloride 105 mmol/L (98-107); Estimated Glomerular Filt Rate > 60; Glucose 115 mg/dL (65-110); Potassium 3.8 mmol/L (3.4-5.0); Sodium 139 mmol/L (137-145)
== END 2023-08-28 10:15 | disposition home or self-care (01) ==
LOC: ANHSURGERY 10:17
PROVIDERS: Anesthesiology; PCP Family Medicine; Visit Provider Obstetrics & Gynecology
DX: Z79.899 Other long term (current) drug therapy (principal)
CPT/HCPCS: 36415; 80048

== ENCOUNTER 2023-08-31 01:03 | Day surgery (SDC) | payer OTHER, SELFPAY ==
[2023-08-27 10:16] VITALS: BMI 42.3
--- NOTE | 2023-08-27 10:17 | PC.NURSE ---
Report to the Outpatient Waiting Room, entrance under the green pavilion located off [facility], at time _1030_ on date _[id number]_. Planned Procedure Time: _1230_. Time changes happen often and if your time is changed the preop area will call you the afternoon before. - You and your visitor will be asked to self-screen and do not enter if you have any COVID symptoms. - A mask is optional within the hospital at this time. Patients may have clear liquids (water, carbonated beverages, clear teas, apple juice) until 3 hours prior to surgery with a maximum of 20 ounces. - No food from midnight until time of surgery Take the following medications with a SIP of water the morning of surgery: ___None DO NOT STOP ANY OF YOUR OTHER PRESCRIPTION MEDICATIONS PRIOR TO SURGERY ?EXCEPT THE FOLLOWING Medications to discontinue per physician All vitamins and supplements Date to take last [id number]____[id number] Please no make-up, nail monegasque, hairspray, perfume, deodorant, or body powder the day of surgery. No jewelry (including any body piercings) or valuables the day of surgery, leave them at home. Please take a shower or bath the night before, or the morning of, surgery with an antibacterial soap. Wear comfortable, loose fitting clothing. - Jewelry must be removed prior to entering the operating room. Rings and piercings that are not removed may be cut off. - The hospital will not accept responsibility for valuables. - Please leave all valuables, including medications, at home the day of surgery. If you are going home after surgery, a licensed sheet pile driver operator must drive you home. - NO public transportation without another adult if you receive anesthesia. - We recommend that an adult stay with you for 24 hours following discharge. - We also recommend that you do not drive, make important decision, drink alcoholic beverages, or take any drugs that were not prescribed by your health care provider for at least 24 hours after your discharge time. Follow any additional instructions given to you from your surgeon. If you or anyone in your household have experienced Covid symptoms in the past week, please notify your surgeon or the nurse liaison at the phone number below for possible testing. Telephone instructions given to __Becca___and asked if any additional questions and then verbalized understanding. Patient advised to call surgeon office or pre surgery nurse liaison [phone] if any additional questions.
--- NOTE | 2023-08-31 07:14 | WPDHPUPDATE1 ---
History and Physical Update Update Date/Time: 08/31/23 07:14 History and Physical has been reviewed, including an updated exam of the patient. There are NO changes in the patient's condition. Risks, benefits, and alternatives have been discussed and questions answered. Patient agrees to proceed with hysteroscopy with D&C.
[2023-08-31 10:00] VITALS: BP 144/95; PULSE 72; RESP 18; TEMP 36.6; O2SAT 100
[2023-08-31] MEDS: LACTATED RINGERS 1,000 ML 30 ML IV CONT (10:00)
--- NOTE | 2023-08-31 10:15 | WPDANESEPPF ---
Anes - Initial Pre Proc Eval Procedure: Operation Date: 08/31/23 11:30 Proposed Procedures p Hysteroscopy Dilation and Curettage - Eduarda Ratliff MD Date/Time: 08/31/23 10:15 Surgeon: Eduarda Ratliff MD Pre Op Diagnosis: post menopausal bleeding Patient Data Age: 63 Gender: F Height: 1.7 m Weight: 122.7 kg Allergies Allergy/AdvReac Type Severity Reaction Status Date / Time No Known Allergies Allergy Verified 08/31/23 10:15 Home Medications Medication Instructions Recorded Confirmed Type aspirin 81 mg chewable tablet 81 mg PO DAILY 05/07/20 08/31/23 History cetirizine 10 mg tablet (Zyrtec) 10 mg PO DAILY 08/22/21 08/31/23 History coenzyme Q10 200 mg capsule 200 mg PO DAILY 11/10/21 08/31/23 History ascorbic acid (vitamin C) 500 mg 250 mg PO DAILY 01/13/22 08/31/23 History tablet calcium carbonate 600 mg-vitamin 1 cap PO DAILY 01/13/22 08/31/23 History D3 12.5 mcg (500 unit) capsule (Calcium 600 with Vitamin D3) betamethasone dipropionate 0.05 % See Rx Instructions .Route 12/08/22 08/31/23 Rx lotion .COMPLEX #60 mL celecoxib 100 mg capsule (Celebrex) 100 mg PO BID PRN Pain 12/30/22 08/31/23 History lorazepam 0.5 mg tablet 0.5 mg PO BID PRN anxiety #14 tabs 05/07/23 08/31/23 Rx furosemide 20 mg tablet See Rx Instructions .Route 06/01/23 08/31/23 Rx .COMPLEX #90 tabs pantoprazole 40 mg tablet,delayed 40 mg PO QAM #90 tabs 07/14/23 08/31/23 Rx release Patient hx anesthesia problems: none Family hx anesthesia problems: none Results Review: All pre-operative results and documents have been reviewed as part of the pre-operative evaluation. [facility] Past Medical History Medical History Allergic rhinitis Arthritis Asthma Chronic GERD Claustrophobia COVID-19 (08/2021) Degenerative disc disease at L5-S1 level Noted on MRI of the hip and pelvis 03/2018 Duodenal stenosis Fracture of metacarpal base of left hand, closed Hyperglycemia Glucose 115 June 2019 Hyperlipidemia Mammogram normal 07/12/2020 Mild chronic obstructive pulmonary disease Mild obstructive ventilatory impairment noted on PFTs 11/2018 Morbid obesity Morbid obesity with BMI of 45.0-49.9, adult Obstructive sleep apnea syndrome Polysomnogram 10/2018 demonstrated mild obstructive sleep apnea with hypoxic events down to 82% but did not meet criteria for CPAP titration. Osteoarthritis of right knee Osteopenia after menopause Noted on x-rays April 2020 patient was referred for DEXA scan September 2021 Polycythemia Postmenopausal Weight loss counseling, encounter for Surgical History Surgical History H/O wrist surgery ORIF Left wrist 11/12/[address] Holm History of colonoscopy (04/2012) Diverticulum transverse colon Family History Family History Father Diabetes mellitus Hypertension Acute myocardial infarction, Onset Age: 45 Mother , 67 Diabetes mellitus Other Depression Heart disease Social History Social History Social History: Code status: Full code Surrogate decision maker: Smoking status: Never smoker Second hand tobacco smoke exposure: No Alcohol intake: current Drinks per week: 6 Alcohol use details: Occasionally Substance use: never Substance use type: does not use Lack of Transportation: No Lack of Food: Never True Current Housing: I Have Housing Concerned About Future Housing: No Difficulty Paying Gas/Electric Bills: No Difficulty Paying for Meds: No Currently Unemployed: No Education: Master's Degree or Higher Difficulty w/ Childcare or Family Care: No Living arrangements: with family Additional living arrangements comments: with sp Occupation/Education: occupation Additional occupation/
[2023-08-31] MEDS: ACETAMINOPHEN 500 MG TABLET 1000 MG PO (10:16)
--- NOTE | 2023-08-31 11:30 | W.PM.PROC2 ---
Procedure Note - Detailed Date of Procedure 08/31/23 Pre-op Diagnosis post menopausal bleeding Post-op Diagnosis Same Procedure Performed Hysteroscopy with D&C Surgeon Eduarda Ratliff MD Anesthesia MAC Findings Uterus sounded to 9cm. Normal endometrial cavity without obvious masses or abnormalities. Cervix with possible small endocervical polyp. Good hemostasis at end of case. Fluid deficit 10cc. Description of Procedure Genet was taken to the operating room where she was placed under sedation without complications. She was then prepped and draped in the usual sterile fashion in the dorsal lithotomy position with her legs in low Kevan stirrups. A time-out was performed and no perioperative antibiotics were indicated. A bivalve speculum was placed within the vagina where the cervix was easily identified. The anterior lip of the cervix was grasped with a single-tooth tenaculum. The cervix was then serially dilated to allow for the hysteroscope. The uterus was sounded. The hysteroscope was advanced into the uterine cavity with the above findings noted. A curettage was then performed until a good uterine cry was felt throughout the uterus. The hysteroscope was once again advanced into the cavity; the endocervical polyp was then noted and removed using polyp forceps. Good hemostasis was noted. All instruments were removed from the vagina. Sponge, lap, instrument, and needle counts were correct at the end of the procedure. Patient was awoken from anesthesia and taken to recovery with plans of same-day discharge home. Estimated Blood Loss 10 IV Fluids 700 Pathology Yes (endometrial curettings) Complications No immediate complications Condition Stable Disposition Same day [facility] Billing Surgery - Charge Forward: Surgery Billing
[2023-08-31 11:34] VITALS: BP 107/61; PULSE 79; RESP 16; O2SAT 97
[2023-08-31 12:00] VITALS: BP 112/75; PULSE 62; RESP 16
[2023-08-31 12:29] VITALS: BP 121/74; PULSE 60; RESP 16
== END 2023-08-31 12:32 | disposition home or self-care (01) ==
PROVIDERS: PCP Family Medicine; Visit Provider Obstetrics & Gynecology
PROC: 0U5B8ZZ Destruction of Endometrium, Via Natural or Artificial Opening Endoscopic (ICD-10-PCS; CPT 58563; principal; 2023-08-31 11:30)
DX: N84.1 Polyp of cervix uteri (principal); E78.5 Hyperlipidemia, unspecified; R73.9 Hyperglycemia, unspecified; G47.33 Obstructive sleep apnea (adult) (pediatric); K21.9 Gastro-esophageal reflux disease without esophagitis; F40.240 Claustrophobia; J44.9 Chronic obstructive pulmonary disease, unspecified; E66.01 Morbid (severe) obesity due to excess calories; Z68.41 Body mass index [BMI] 40.0-44.9, adult; Z79.82 Long term (current) use of aspirin; Z98.890 Other specified postprocedural states; Z82.49 Family history of ischemic heart disease and other diseases of the circulatory system; M81.0 Age-related osteoporosis without current pathological fracture
CPT/HCPCS: 58558; 88305; A9270; J2250; J2704; J3010; J7120

== ENCOUNTER 2023-11-04 10:57 | Outpatient (CLI) | payer OTHER, SELFPAY ==
--- NOTE | 2023-11-04 12:00 | NEURO_ITS ---
Impression: # Non-diabetic ,status post left forearm fracture and surgery. # Normal Nerve Conduction Study. No Carpal Tunnel Syndrome or ulnar neuropathy. # Normal needle/EMG exam in flexor/extensor muscles of wrist/fingers. Nerve Conduction Studies Anti Sensory Summary Table Stim Site NR Peak (ms) P-T Amp (?V) Site1 Site2 Delta-P (ms) Dist (cm) Bernardo (m/s) Left Median Anti Sensory (2-3nd Digit) Wrist 3.1 58.0 Wrist 2-3nd Digit 3.1 14.0 45 Wrist 3.1 66.0 Wrist 2-3nd Digit 3.1 14.0 45 Right Median Anti Sensory (2-3nd Digit) Wrist 3.5 48.9 Wrist 2-3nd Digit 3.5 14.0 40 Wrist 3.3 64.0 Wrist 2-3nd Digit 3.5 14.0 40 Left Radial Anti Sensory (Base 1st Digit) Wrist 2.3 20.1 Wrist Base 1st Digit 2.3 0.0 Right Radial Anti Sensory (Base 1st Digit) Wrist 2.6 19.1 Wrist Base 1st Digit 2.6 0.0 Left Ulnar Anti Sensory (5th Digit) Wrist 3.1 11.2 Wrist 5th Digit 3.1 14.0 45 Right Ulnar Anti Sensory (5th Digit) Wrist 2.8 44.8 Wrist 5th Digit 2.8 14.0 50 Motor Summary Table Stim Site NR Onset (ms) O-P Amp (mV) Site1 Site2 Delta-0 (ms) Dist (cm) Bernardo (m/s) Left Median Motor (Abd Poll Brev) Wrist 3.2 3.7 Elbow Wrist 4.7 28.0 60 Elbow 7.9 2.9 Right Median Motor (Abd Poll Brev) Wrist 3.4 8.1 Elbow Wrist 5.2 28.0 54 Elbow 8.6 8.4 Left Ulnar Motor (Abd Dig Minimi) Wrist 3.0 5.9 A Elbow Wrist 4.8 28.0 58 A Elbow 7.8 5.4 Right Ulnar Motor (Abd Dig Minimi) Wrist 3.0 6.6 A Elbow Wrist 4.8 28.0 58 A Elbow 7.8 4.7 F Wave Studies NR F-Lat (ms) L-R F-Lat (ms) Left Median (Mrkrs) (Abd Poll Brev) 27.66 1.25 Right Median (Mrkrs) (Abd Poll Brev) 28.91 1.25 Left Ulnar (Mrkrs) (Abd Dig Min) 29.30 0.82 Right Ulnar (Mrkrs) (Abd Dig Min) 28.48 0.82 EMG Side Muscle Nerve Root Ins Act Fibs Amp Dur Recrt Comment Right 1stDorInt Ulnar C8-T1 Nml Nml Nml Nml Nml Right Ext Indicis Radial (Post Int) C7-8 Nml Nml Nml Nml Nml Right Ext Digitorum Radial (Post Int) C7-8 Nml Nml Nml Nml Nml Right BrachioRad Radial C5-6 Nml Nml Nml Nml Nml Right PronatorTeres Median C6-7 Nml Nml Nml Nml Nml Right Abd Poll Brev Median C8-T1 Nml Nml Nml Nml Nml Right ABD Dig Min Ulnar C8-T1 Nml Nml Nml Nml Nml Left 1stDorInt Ulnar C8-T1 Nml Nml Nml Nml Nml Left Ext Indicis Radial (Post Int) C7-8 Nml Nml Nml Nml Nml Left Ext Digitorum Radial (Post Int) C7-8 Nml Nml Nml Nml Nml Left BrachioRad Radial C5-6 Nml Nml Nml Nml Nml Left PronatorTeres Median C6-7 Nml Nml Nml Nml Nml Left Abd Poll Brev Median C8-T1 Nml Nml Nml Nml Nml Left ABD Dig Min Ulnar C8-T1 Nml Nml Nml Nml Nml MTDD
== END 2023-11-04 10:58 | disposition home or self-care (01) ==
LOC: ANHNEURO 10:58
PROVIDERS: PCP Family Medicine; Visit Provider Orthopaedic Surgery
DX: R20.0 Anesthesia of skin (principal); R20.2 Paresthesia of skin; Z98.890 Other specified postprocedural states
CPT/HCPCS: 95886; 95911

== ENCOUNTER 2023-11-23 01:04 | Day surgery (SDC) | payer OTHER, SELFPAY ==
[2023-11-10 09:56] VITALS: BMI 42.3
--- NOTE | 2023-11-10 10:02 | PC.NURSE ---
Report to the Outpatient Waiting Room, entrance under the green pavilion located off [facility], at time _0600_ on date _[id number]_. Planned Procedure Time: _0730_.? Time changes happen often and if your time is changed the preop area will call you the afternoon before. - You and your visitor will be asked to self-screen and do not enter if you have any COVID symptoms. Please call surgeon if you need to reschedule. - A mask is optional within the hospital at this time. Patients may have clear liquids (water, carbonated beverages, clear teas, apple juice) until 3 hours prior to surgery with a maximum of 20 ounces. - No food from midnight until time of surgery and no smoking Take only the following medications with a SIP of water on the morning of surgery: __None DO NOT STOP ANY OF YOUR OTHER PRESCRIPTION MEDICATIONS PRIOR TO SURGERY EXCEPT THE FOLLOWING Medications to discontinue per physician ____All vitamins and supplements Date to take last sthc___[id number] Please no make-up, nail cymro, hairspray, perfume, deodorant, or body powder the day of surgery.? No jewelry (including any body piercings) or valuables the day of surgery, leave them at home.? Please take a shower or bath the night before, or the morning of, surgery with an antibacterial soap.? Wear comfortable, loose fitting clothing.? - Jewelry must be removed prior to entering the operating room.? Rings and piercings that are not removed may be cut off. - The hospital will not accept responsibility for valuables.? - Please leave all valuables, including medications, at home the day of surgery. If you are going home after surgery, a licensed electric truck driver must drive you home.? - NO public transportation without another adult if you receive anesthesia. - We recommend that an adult stay with you for 24 hours following discharge. - We also recommend that you do not drive, make important decision, drink alcoholic beverages, or take any drugs that were not prescribed by your health care provider for at least 24 hours after your discharge time. Follow any additional instructions given to you from your surgeon. Telephone instructions given to _Cathy___and asked if any additional questions and then verbalized understanding. Patient advised to call surgeon office or pre surgery nurse liaison [phone] if any additional questions
--- NOTE | 2023-11-19 14:25 | PM.IMHP ---
H&P: HPI History of Present Illness Date/Time: 11/19/23 14:25 Chief Complaint: Left wrist pain, left hand numbness and tingling. Narrative: 63-year-old woman 2 years status post left wrist fracture with open reduction internal fixation. Pain over the wrist area where the hardware is present. Also complains of numbness and tingling in the hand and fingers, pain at the elbow. EMG nerve conduction study shows cubital and carpal tunnel left upper extremity. Has failed conservative treatment and presents for desired operative treatment. Review of Systems Constitutional: Constitutional: Reports no additional constitutional complaints, Denies chills, Denies fatigue, Denies fever(s), Denies headache(s) and Denies weakness Eyes: Eyes: Denies change in vision ENT: Reports Normal hearing present and Denies headache(s) Cardiovascular: Cardiovascular: Denies chest pain and Denies dyspnea Respiratory: Respiratory: Denies cough, Denies dyspnea and Denies wheezing Gastrointestinal: Gastrointestinal: Denies constipation, Denies diarrhea, Denies nausea and Denies vomiting Genitourinary: Genitourinary: Denies hematuria, Denies dysuria and Denies urinary urgency Musculoskeletal: Musculoskeletal: Reports as per HPI Integumentary/Breasts: Skin/Breast: Reports as per HPI Neurologic: Reports as per HPI, Reports Normal hearing present, Denies headache(s), Denies numbness, Denies tingling and Denies weakness Psychiatric: Psychiatric: Reports no additional psychiatric complaints Endocrine: Endocrine: Reports no additional endocrine complaints and Denies fatigue Hematologic/Lymphatic: Hematologic/Lymphatic: Reports no additional hematologic/lymphatic complaints Allergic/Immunologic: Allergic/Immunologic: Reports no additional allergic/immunologic complaints and Denies wheezing [facility] Past Medical History Medical History Allergic rhinitis Arthritis Asthma Carpal tunnel syndrome, left Chronic GERD Claustrophobia COVID-19 (08/2021) Cubital tunnel syndrome on left Degenerative disc disease at L5-S1 level Noted on MRI of the hip and pelvis 03/2018 Duodenal stenosis Fracture of metacarpal base of left hand, closed Hyperglycemia Glucose 115 June 2019 Hyperlipidemia Mammogram normal 07/12/2020 Mild chronic obstructive pulmonary disease Mild obstructive ventilatory impairment noted on PFTs 11/2018 Morbid obesity Morbid obesity with BMI of 45.0-49.9, adult Numbness and tingling in left arm Obstructive sleep apnea syndrome Polysomnogram 10/2018 demonstrated mild obstructive sleep apnea with hypoxic events down to 82% but did not meet criteria for CPAP titration. Osteoarthritis of right knee Osteopenia after menopause Noted on x-rays April 2020 patient was referred for DEXA scan September 2021 Painful orthopaedic hardware Polycythemia Postmenopausal Weight loss counseling, encounter for Surgical History Surgical History H/O wrist surgery ORIF Left wrist 11/12/[address] Holm History of colonoscopy (04/2012) Diverticulum transverse colon History of hysteroscopy (08/31/23) Hysteroscopy with D&C / Benign pathology Family History Family History Father Diabetes mellitus Hypertension Acute myocardial infarction, Onset Age: 45 Mother Diabetes mellitus Other Depression Heart disease Social History Social History Social History: Code status: Full code Surrogate decision maker: Smoking status: Never smoker Second hand tobacco smoke exposure: No Alcohol intake: current Drinks per week: 4 Alcohol use details: Occasionally Substance use: never Substance use type: does not use Lack of Transportation: No Lack of Food: Never True Current Housing: I Have Housing Concerned About Future Housing: No Difficulty Paying Gas/Electric Bills: No Difficulty Paying for Meds: No Currently Unemployed: No Education: Master's Degree or Higher Difficulty w/ Childcare or Family Care: No Living arrangements: with family Additional living arrangements comments: with sp Occupation/Education: occupation Additional occupation/education comments: 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 She has worked at home since [employer] started. Gender identity (if verbalized by the patient): Female Spiritual care concerns: No Agree to blood products: Yes Meds Home Medications and Allergies Home Medications Medication Instructions Recorded Confirmed Type aspirin 81 mg chewable tablet 81 mg PO DAILY 05/07/20 11/10/23 History cetirizine 10 mg tablet (Zyrtec) 10 mg PO DAILY 08/22/21 11/10/23 History coenzyme Q10 200 mg capsule 200 mg PO DAILY 11/10/21 11/10/23 History ascorbic acid (vitamin C) 500 mg 250 mg PO DAILY 01/13/22 11/10/23 History tablet calcium 600 mg (as 1 cap PO DAILY 01/13/22 11/10/23 History carbonate)-vitamin D3 12.5 mcg (500 unit) capsule (Calcium with Vit D3) betamethasone dipropionate 0.05 % See Rx Instructions .Route 12/08/22 11/10/23 Rx lotion .COMPLEX #60 mL pantoprazole 40 mg tablet,delayed 40 mg PO QAM #90 tabs 07/14/23 11/10/23 Rx release acetaminophen 500 mg tablet 1,000 mg PO TID PRN Pain 11/10/23 11/10/23 History celecoxib 100 mg capsule See Rx Instructions .Route 11/11/23 Rx .COMPLEX #180 caps furosemide 20 mg tablet See Rx Instructions .Route 11/11/23 Rx .COMPLEX #90 tabs Allergies Allergy/AdvReac Type Severity Reaction Status Date / Time No Known Allergies Allergy Verified 11/10/23 09:54 Exam Const: General: cooperative, healthy appearing, no acute distress, well developed and alert; No confusion Orientation/consciousness: No confusion HENMT: Head: normal to inspection, normocephalic and atraumatic Eyes: Conjunctivae: conjunctivae normal Sclera: sclerae normal Neck: Neck: supple and nontender Chest: Chest palpation & inspection: normal inspection of the chest Resp: Effort & Inspection: normal respiratory effort and no audible wheezes Cardio: Rate: regular rate Rhythm: regular rhythm : General: Yes deferred Skin: General skin exam: no rashes or lesions noted Neuro: General: No confusion Motor exam (neuro): Normal motor muscle tone present throughout Sensory Exam: Sensory deficit (Neuro) (decreased sensation to light touch thumb, index, middle and radial ring izabel) and Upper extremity sensory exam abnormal Deep tendon reflexes (DTR's): Right triceps reflex intensity grade: 2+, Left triceps reflex intensity grade: 2+, Rt Biceps (C5, C6): 2+, Left biceps reflex intensity grade: 2+, Right brachioradialis reflex intensity grade: 2+ and Left brachioradialis reflex intensity grade: 2+ Extrem: General: capillary refill normal Right upper extremity: normal to inspection, full ROM, normal capillary refill and wrist normal vascular exam ( ), radial pulse present and normal Kevan's test; Tinel's positive ( positive median nerve compression test. Positive Tinel's) and Phalen's positive Left upper extremity: normal to inspection and wrist normal vascular exam, radial pulse present and normal Kevan's test; Tinel's positive ( positive median nerve compression test. Positive Tinel's) and Phalen's positive Right lower extremity: normal to inspection and hip/thigh Details: normal to inspection Left lower extremity: hip/thigh Details: tenderness, swelling and abnormal ROM and ankle (no calf tenderness) Psych: Affect: normal affect Assessment and Plan Assessment and plan (1) Carpal tunnel syndrome, left: Code(s): G56.02 - Carpal tunnel syndrome, left upper limb Status: Acute (2) Cubital tunnel syndrome on left: Code(s): G56.22 - Lesion of ulnar nerve, left upper limb Status: Acute (3) Painful orthopaedic hardware: Code(s): T84.84XA - Pain due to internal orthopedic prosthetic devices, implants and grafts, initial encounter Status: Acute Assessment and Plan: Updated history, physical exam and radiographs reviewed with the patient. Interval changes reviewed. Discussed the condition, nature, etiology and course of natural history with the patient. Treatment options including surgical and nonoperative treatment were reviewed. Risks and benefits of each as well as alternatives reviewed. The patient's questions were answered. Conservative treatment in past with PT, brace, ice, compression and elevation. EMG nerve conduction study shows median nerve compression at the wrist and ulnar nerve compression at the elbow consistent with carpal and cubital tunnel syndromes. ? 2 years status post ORIF right distal radius and ulna. Pain with hardware present. radiographs show full healing. Discussed hardware removal for pain, scar and stiffness. ? ? Discussed nonoperative and operative treatment options with the patient. Risks and benefits of each as well as alternatives were reviewed. All of the patient's questions were answered. The risks of surgery reviewed including but not limited to: Neurovascular damage, wound complication, infection, blood clot, pulmonary embolus, stroke, myocardial infarction, and anesthetic risks up to and including . Continued pain and possible dysfunction were explained. Specific risks of the procedure including later recurrence of deformity. No guarantees were offered. If hardware used, discussed risk of failure/ breakage and possible need for removal. If complications occur, the patient understands the need for further treatment, possible further surgery. Patient verbalizes understanding and wishes to proceed. ? PLAN: Removal hardware left wrist, Left carpal tunnel release, left cubital tunnel release. (4) Numbness and tingling in left arm: Code(s): R20.0 - Anesthesia of skin; R20.2 - Paresthesia of skin Status: Acute
[2023-11-23] VITALS (9 sets, daily range): BP systolic 98–139; BP diastolic 59–80; PULSE 69–85; RESP 10–17; TEMP 36.3–36.4; O2SAT 96–100
--- NOTE | ~2023-11-23 | XR_ITS ---
EXAMINATION: XR surgery orthopedic DATE: 11/23/2023 10:58 INDICATION: Left wrist orthopedic instrumentation removal TECHNIQUE: 3 fluoroscopic images of the left wrist were obtained during procedure performed by Dr. Pancho ayala. Radiologist was not present for the imaging or procedure. The amount of fluoroscopy time used during this procedure was 0.2 minutes. COMPARISON: None. FINDINGS: Interval healing of the previously seen distal metaphyseal fractures of the left radius and ulna whic h have healed in near-anatomic alignment. There is neutral tilt of the distal radial articular surfac e on the lateral projection. There are lucent screw tracks related to the prior volar T plate and scr ew fixation. No residual instrumentation or other metallic foreign bodies appreciated. No acute fract ures. Profiled joint spaces appear relatively preserved. IMPRESSION: 1. Fluoroscopy utilized during removal of internal fixation instrumentation at a now healed distal le ft radial fracture which is in near-anatomic alignment. The distal ulnar fracture is also healed in n ear-anatomic alignment. Reviewed, dictated and finalized at location A. IMPRESSION: 1. Fluoroscopy utilized during removal of internal fixation instrumentation at a now healed distal left radial fracture which is in near-anatomic alignment. T he distal ulnar fracture is also healed in near-anatomic alignment.
[2023-11-23] MEDS: KETOROLAC 15 MG/ML VIAL (*BKC) IV PUSH (08:40)
[2023-11-23] MEDS: LACTATED RINGERS 1,000 ML 30 ML IV CONT (08:40)
[2023-11-23] MEDS: ACETAMINOPHEN 500 MG TABLET 1000 MG PO (08:40)
--- NOTE | 2023-11-23 09:18 | P.PNAN_ITS ---
Anes - Initial Pre Proc Eval Procedure: Operation Date: 11/23/23 10:30 Proposed Procedures p Left Carpal and Cubital Tunnel Release, - Ryan Holm MD s Removal Hardware Left Wrist - Ryan Holm MD Date/Time: 11/23/23 09:18 Surgeon: Ryan Holm MD Pre Op Diagnosis: Left Carpal and Cubital Tunnel syndrome, Patient Data Age: 63 Gender: F Height: 1.7 m Weight: 123.3 kg Last Vital Signs Temp 36.4 C 11/23/23 08:40 Pulse 83 11/23/23 08:40 Resp 14 11/23/23 08:40 BP 139/80 11/23/23 08:40 Pulse Ox 100 11/23/23 08:40 O2 Del Method Room Air 11/23/23 08:40 Allergies Allergy/AdvReac Type Severity Reaction Status Date / Time No Known Allergies Allergy Verified 11/23/23 08:52 Home Medications Medication Instructions Recorded Confirmed Type aspirin 81 mg chewable tablet 81 mg PO DAILY 05/07/20 11/10/23 History cetirizine 10 mg tablet (Zyrtec) 10 mg PO DAILY 08/22/21 11/10/23 History coenzyme Q10 200 mg capsule 200 mg PO DAILY 11/10/21 11/10/23 History ascorbic acid (vitamin C) 500 mg 250 mg PO DAILY 01/13/22 11/10/23 History tablet calcium 600 mg (as 1 cap PO DAILY 01/13/22 11/10/23 History carbonate)-vitamin D3 12.5 mcg (500 unit) capsule (Calcium with Vit D3) betamethasone dipropionate 0.05 % See Rx Instructions .Route 12/08/22 11/10/23 Rx lotion .COMPLEX #60 mL pantoprazole 40 mg tablet,delayed 40 mg PO QAM #90 tabs 07/14/23 11/10/23 Rx release acetaminophen 500 mg tablet 1,000 mg PO TID PRN Pain 11/10/23 11/10/23 History celecoxib 100 mg capsule See Rx Instructions .Route 11/11/23 Rx .COMPLEX #180 caps furosemide 20 mg tablet See Rx Instructions .Route 11/11/23 Rx .COMPLEX #90 tabs Patient hx anesthesia problems: none Family hx anesthesia problems: none Results Review: All pre-operative results and documents have been reviewed as part of the pre- operative evaluation. [facility] Past Medical History Medical History Allergic rhinitis Arthritis Asthma Carpal tunnel syndrome, left Chronic GERD Claustrophobia COVID-19 (08/2021) Cubital tunnel syndrome on left Degenerative disc disease at L5-S1 level Noted on MRI of the hip and pelvis 03/2018 Duodenal stenosis Fracture of metacarpal base of left hand, closed Hyperglycemia Glucose 115 June 2019 Hyperlipidemia Mammogram normal 07/12/2020 Mild chronic obstructive pulmonary disease Mild obstructive ventilatory impairment noted on PFTs 11/2018 Morbid obesity Morbid obesity with BMI of 45.0-49.9, adult Numbness and tingling in left arm Obstructive sleep apnea syndrome Polysomnogram 10/2018 demonstrated mild obstructive sleep apnea with hypoxic events down to 82% but did not meet criteria for CPAP titration. Osteoarthritis of right knee Osteopenia after menopause Noted on x-rays April 2020 patient was referred for DEXA scan September 2021 Painful orthopaedic hardware Polycythemia Postmenopausal Weight loss counseling, encounter for Surgical History Surgical History H/O wrist surgery ORIF Left wrist 11/12/[address] Holm History of colonoscopy (04/2012) Diverticulum transverse colon History of hysteroscopy (08/31/23) Hysteroscopy with D&C / Benign pathology Family History Family History Father Diabetes mellitus Hypertension Acute myocardial infarction, Onset Age: 45 Mother Diabetes mellitus Other Depression Heart disease Social History Social History Social History: Code status: Full code Surrogate decision maker: Smoking status: Never smoker Second hand tobacco smoke exposure: No Alcohol intake: current Drinks per week: 4 Alcohol use details: Occasionally Substance use: never Substance use type: does not use Lack of Transportation: No Lack of Food: Never True Current Housing: I Have Housing Concerned About Future Housing: No Difficulty Paying Gas/Electric Bills: No Difficulty Paying for Meds: No Currently Unemployed: No Education: Master's Degree or Higher Difficulty w/ Childcare or Family Care: No Living arrangements: with family Additional living arrangements comments: with sp Occupation/Education: occupation Additional occupation/education comments: 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 She has worked at home since COVID started. Gender identity (if verbalized by the patient): Female Spiritual care concerns: No Agree to blood products: Yes Karan Ellsworth Final PreProcedure Day of Procedure 11/23/23 09:18 Patient weight: morbidly obese Heart: regular rate and rhythm Lungs: clear to auscultation Airway: Mallampati scale class II Neurological: alert and oriented Last oral intake: >/= 8 hours ASA classification: III Emergent: no Anesthetic plan: proceed Anesthesia type and monitoring: general LMA and standard monitoring Results Review: All pre-operative results and documents have been reviewed as part of the pre- operative evaluation. Informed Consent: The patient's anesthetic plan and its attendant risks and benefits were discussed with the patient/family/POA. Questions were solicited and answers provided to the satisfaction of the patient/family/POA.
--- NOTE | 2023-11-23 09:22 | WPDHPUPDATE1 ---
History and Physical Update Update Date/Time: 11/23/23 09:22 History and Physical has been reviewed, including an updated exam of the patient. There are NO changes in the patient's condition. Risks, benefits, and alternatives have been discussed and questions answered. Patient agrees to proceed with procedure.
[2023-11-23] MEDS: ceFAZolin 3 GM/D5W 100 ML 100 ML IVPB (09:32)
[2023-11-23] MEDS: ceFAZolin SODIUM 1 GM VIAL (09:50)
[2023-11-23] MEDS: BUPIVACAINE/EPINEPHRINE 0.5% 50 ML VIAL 30 ML INFILTRATE (09:58)
--- NOTE | 2023-11-23 11:33 | W.PM.PROC2 ---
Procedure Note - Detailed Date of Procedure 11/23/23 Pre-op Diagnosis Left Carpal and Cubital Tunnel syndrome, painful hardware left wrist Post-op Diagnosis Same Procedure Performed Left wrist removal deep hardware, left cubital tunnel release, left carpal tunnel release Surgeon Ryan Holm MD Computer Technician 1st volunteer assistant Anesthesia General Indications 63-year-old who is 2 years status post open reduction internal fixation left distal radius fracture. She has pain over the hardware as well as scar tissue at the wrist. She has numbness and tingling in hand and fingers and pain at the elbow. Failed conservative treatment for cubital and carpal tunnel. Presents for operative treatment as well as removal of the previous orthopedic hardware. Findings Ulnar nerve with partial subluxation from the cubital tunnel Over the medial epicondyle. Description of Procedure After informed consent was given, the operative extremity was marked in the preoperative holding area. Intravenous antibiotics were given. The patient was taken to the operating room and underwent conscious sedation by the anesthesia team. A time-out was performed confirming patient, procedure, and operative site. Local infiltrate at the carpal tunnel , cubital tunnel and distal volar radius was done with 0.5% marcaine with epinephrine. Prepping and draping was done using chloraprep skin solution with usual surgical sterile technique. Anatomic landmarks marked on skin. Hand was exsanguinated and arm tourniquet inflated to 225mmHg. elbow addressed 1st. Curvilinear incision made over the cubital tunnel with a 15 blade knife. Hemostasis controlled with electrocautery. Sharp dissection carried down through the subcutaneous tissue. Dissection was then performed with tenotomy scissors to the cubital tunnel. Fascia released in line with the skin incision under direct vision using a [place] elevator to protect The ulnar nerve. The nerve was noted to be subluxed At the proximal extent over the medial epicondyle. release of the nerve was done above and below the medial epicondyle. The nerve was noted to be intact. After release the nerve properly sat in position And was noted to be stable with full elbow range of motion. wound was irrigated with saline and subcutaneous tissue repaired with 2-0 Vicryl interrupted suture. Skin repaired with 3-0 Monocryl running subcuticular stitch and glue for the skin. Next the carpal tunnel was addressed. Incision was made with #15 blade knife in skin crease on volar palm. Hemostasis was achieved with electrocautery. Careful dissection was carried down to the transverse carpal ligament. Retractors were placed. Ligament overlying median nerve was incised in line with skin incision using northway blade. Proximal and distal release was done with metzenbaum scissors under direct visualization. Mosquito clamp was placed deep to ligament to protect nerve during release. The nerve was inspected and noted to be intact with mild flattening. Tendons had good excursion. Wound irrigated with saline and subcutaneous tissue closed with 2-0 Vicryl interrupted suture. Skin repaired with 4-0 Monocryl running subcuticular stitch and Glue. Distal radius then addressed. The previous incision was utilized and made again with a 15 blade knife. Hemostasis controlled electrocautery. Flexor carpi radialis retracted medially and dissection carried deep. Flexor pollicis retracted and the pronator was then elevated off the distal radius to expose the plate. Screws proximally distally removed and the plate was removed and passed off. Image intensification confirmed removal of all hardware. The screw holes were curetted and excess bone was debrided with rongeur. Wound irrigated with saline. Subcutaneous tissue closed with 2-0 Vicryl interrupted suture and skin repaired with 4-0 Monocryl running subcuticular stitch and glue. The tourniquet was then released. A sterile dressing was applied. Good capillary refill in the fingers and thumb was noted. The patient was transported to the recovery room in stable condition. All sponge, needle, instrument counts were correct at the end of the case. Estimated Blood Loss 5 Tourniquet Time Total Tourniquet Time: 81 Drains No Packing No Pathology None sent Complications None Condition Stable Disposition PACU [facility] Billing Surgery - Charge Forward: Surgery Billing ([id number], [id number], [id number])
[2023-11-23] MEDS: oxyCODONE HCL (*CRX) 5 MG TAB IR PO (12:15)
--- NOTE | 2023-11-23 13:17 | SUR.PHASEII ---
1310 PATIENT READY FOR DISCHARGE. WAITING ON HARDWARE.
== END 2023-11-23 13:34 | disposition home or self-care (01) ==
PROVIDERS: PCP Family Medicine; Visit Provider Orthopaedic Surgery
PROC: (CPT 64721; principal; 2023-11-23 10:30)
PROC: (CPT 20694; 2023-11-23 10:30)
DX: G56.02 Carpal tunnel syndrome, left upper limb (principal); G56.22 Lesion of ulnar nerve, left upper limb; T84.84XA Pain due to internal orthopedic prosthetic devices, implants and grafts, initial encounter; Y83.8 Other surgical procedures as the cause of abnormal reaction of the patient, or of later complication, without mention of misadventure at the time of the procedure; Z87.81 Personal history of (healed) traumatic fracture; E78.5 Hyperlipidemia, unspecified; K21.9 Gastro-esophageal reflux disease without esophagitis; G47.33 Obstructive sleep apnea (adult) (pediatric); J44.9 Chronic obstructive pulmonary disease, unspecified; E66.01 Morbid (severe) obesity due to excess calories; Z68.41 Body mass index [BMI] 40.0-44.9, adult; Z79.82 Long term (current) use of aspirin
CPT/HCPCS: 64721; 64718; 20680; 99199; A4565; A9270; J0690; J1100; J1885; J2003; J2004; J2250; J2405; J2704; J3010; J7120

== ENCOUNTER 2024-01-12 09:50 | Outpatient (CLI) | payer OTHER, SELFPAY ==
--- NOTE | ~2024-01-12 | MM_ITS ---
EXAMINATION: MM tomosynthesis screening BI HISTORY: Screening TECHNIQUE: Craniocaudal and mediolateral oblique 3-D tomosynthesis images were obtained and synthetic 2-D images were generated. CAD analysis was submitted and interpreted. COMPARISON: Comparison to multiple prior studies sequentially, with oldest reviewed study dated 10/19. BREAST PARENCHYMAL COMPOSITION: Not Dense: The breasts are almost entirely fatty. FINDINGS: There is no evidence of suspicious mass, calcification, or architectural distortion to sugg est malignancy in either breast. There has been no suspicious interval change. IMPRESSION: 1. No mammographic evidence of malignancy. 2. Recommend routine screening mammography in one year. BI-RADS Category 1: Negative Reviewed, dictated and finalized at location B. TER OPERATOR
== END 2024-01-12 09:51 | disposition home or self-care (01) ==
PROVIDERS: PCP Family Medicine; Visit Provider Obstetrics & Gynecology
DX: Z12.31 Encounter for screening mammogram for malignant neoplasm of breast (principal)
CPT/HCPCS: 77063

== ENCOUNTER 2024-01-18 07:38 | Outpatient (CLI) | payer OTHER, SELFPAY ==
[2024-02-11 13:53] VITALS: BMI 42.3
--- NOTE | 2024-02-11 13:53 | WPDHOMESLEEP ---
Sleep Study - Home Unattended Date of Study: 01/18/24 Ordering Provider: Gianna Alarcon DO Interpreting Provider: Janis Kinsey DO Home Sleep Study Type: Watch PAT Height: 1.7 m Weight: 122.47 kg Body Mass Index: 42.3 Neck Circumference (inches): 16 Embarrass: 1 Reason for Sleep Study snoring, witnessed apneas Sleep History The patient is a 63-year-old female that a sleep study ordered by her primary care physician for evaluation of sleep. The patient denies awakening from sleep short of breath. She rarely awakens at night with, belching or cough. She denies snoring. She constantly has trouble sleeping when she has a cold. She denies waking gasping air throughout the night. She frequently has breathing problems at night observed by herself or others. She occasionally sweats excessively at night. She denies having heart palpitations or irregular heartbeats during the night. She denies falling asleep during the day and while driving. She denies sleep paralysis and cataplexy. She denies having trouble at school or work due to sleepiness. She occasionally experiences vivid dreamlike scenes upon awakening or falling asleep. She denies feeling afraid of going to sleep. She denies having nightmares. Rarely remembers her dreams. She constantly has thoughts racing through her mind. She denies feeling sad or depressed. She occasionally has anxiety. She denies having muscular tension. She occasionally notices parts of her body jerk. She frequently kicks during the night. She frequently has crawling and aching feelings in her legs but rarely has leg pain during the night. She rarely grinds her teeth during sleep but never awakens with morning jaw pain. She is constantly bothered by pain during the day and frequently awakened by pain during the night. She constantly wakes up feeling stiff in the morning. She constantly wakes up with sore or achy muscles. She constantly wakes up with pain in the neck, spine and joints. She goes to bed at 11:00 p.m. on both weekdays and weekends. It takes her few minutes to fall asleep. She wakes up 1-2 times throughout the night to urinate and is able to fall back asleep within minutes. She wakes up at 7:30 a.m. on weekdays and 8:30 a.m. on the weekends. She typically gets 8 hours of sleep per night. She will stay in bed for 15 minutes after waking up morning. She currently lives with her spouse. She denies consuming any caffeinated beverages within 2 hours of bedtime. She denies engaging in physical exercise before bedtime. She will read and watch television before asleep. She denies taking naps in afternoon and evening. She consumes 12 oz of caffeinated soda per day. She consumes alcoholic beverages 1-2 times per week. She denies tobacco and recreational drug use. [facility] Past Medical History Medical History Carpal tunnel syndrome, left Cubital tunnel syndrome on left Painful orthopaedic hardware Numbness and tingling in left arm Duodenal stenosis Fracture of metacarpal base of left hand, closed Claustrophobia Weight loss counseling, encounter for Morbid obesity Asthma Morbid obesity with BMI of 45.0-49.9, adult Osteopenia after menopause Noted on x-rays April 2020 patient was referred for DEXA scan September 2021 Degenerative disc disease at L5-S1 level Noted on MRI of the hip and pelvis 03/2018 Mammogram normal 07/12/2020 Mild chronic obstructive pulmonary disease Mild obstructive ventilatory impairment noted on PFTs 11/2018 Allergic rhinitis Postmenopausal COVID-19 (08/2021) Osteoarthritis of right knee Chronic GERD Arthritis Hyperlipidemia Hyperglycemia Glucose 115 June 2019 Obstructive sleep apnea syndrome Polysomnogram 10/2018 demonstrated mild obstructive sleep apnea with hypoxic events down to 82% but did not meet criteria for CPAP titration. Polycythemia Surgical History Surgical History History of carpal tunnel surgery of left wrist History of hysteroscopy (08/31/23) Hysteroscopy with D&C / Benign pathology H/O wrist surgery ORIF Left wrist 11/12/[address] Holm History of colonoscopy (04/2012) Diverticulum transverse colon Family History Family History Father Diabetes mellitus Hypertension Acute myocardial infarction, Onset Age: 45 Mother Diabetes mellitus Other Depression Heart disease Social History Social History Social History: Code status: Full code Surrogate decision maker: Smoking status: Never smoker Second hand tobacco smoke exposure: No Alcohol intake: current Drinks per week: 4 Alcohol use details: Occasionally Substance use: never Substance use type: does not use Do You Feel Safe in your Home?: Yes Lack of Transportation: No Lack of Food: Never True Current Housing: I Have Housing Concerned About Future Housing: No Difficulty Paying Gas/Electric Bills: No Difficulty Paying for Meds: No Currently Unemployed: No Education: Master's Degree or Higher Difficulty w/ Childcare or Family Care: No Living arrangements: with family Additional living arrangements comments: with sp Occupation/Education: occupation Additional occupation/education comments: 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 She has worked at home since COVID started. Gender identity (if verbalized by the patient): Female Spiritual care concerns: No Agree to blood products: Yes Medications Home Medications ?Medication ?Instructions ?Recorded ?Confirmed ?Type aspirin 81 mg chewable tablet 81 mg PO DAILY 05/07/20 12/23/23 History cetirizine 10 mg tablet (Zyrtec) 10 mg PO DAILY 08/22/21 12/23/23 History coenzyme Q10 200 mg capsule 200 mg PO DAILY 11/10/21 12/23/23 History ascorbic acid (vitamin C) 500 mg 250 mg PO DAILY 01/13/22 12/23/23 History tablet calcium 600 mg (as 1 cap PO DAILY 01/13/22 12/23/23 History carbonate)-vitamin D3 12.5 mcg (500 unit) capsule (Calcium with Vit D3) betamethasone dipropionate 0.05 % See Rx Instructions .Route 12/08/22 12/23/23 Rx lotion .COMPLEX #60 mL pantoprazole 40 mg tablet,delayed 40 mg PO QAM #90 tabs 07/14/23 12/23/23 Rx release acetaminophen 500 mg tablet 1,000 mg PO TID PRN Pain 11/10/23 12/23/23 History celecoxib 100 mg capsule See Rx Instructions .Route 11/11/23 12/23/23 Rx .COMPLEX #180 caps furosemide 20 mg tablet See Rx Instructions .Route 11/11/23 12/23/23 Rx .COMPLEX #90 tabs amoxicillin 875 mg-potassium 1 tablet PO BID #20 tabs 12/31/23 Rx clavulanate 125 mg tablet methylprednisolone 4 mg tablets in See Rx Instructions PO PER PKG DIR 12/31/23 Rx a dose pack #21 ea Sleep Procedure The sleep study was completed using [employer] a technically adequate device with seven channels: peripheral arterial tone, actigraphy, body position, snore, respiratory movement, pulse oximetry, sleep staging, and heart rate. Prior to using the device, the patient received verbal and written instructions for its application and was provided with the help desk phone number for additional telephonic instruction with 24-hour availability of qualified personnel to answer questions. The study was scored using CMS guidelines. Sleep Architecture The total recording time is 7 hrs, 38 min. The total sleep time is 6 hrs, 34 min. Sleep latency is 19 minutes. REM latency is 104 minutes. The patient had 12 episodes of waking. Sleep architecture shows 20.8% deep sleep, 58.9% light sleep, and (as % Total Sleep Time) showed NREM (Light 58.9%; Deep 20.8%), and a 20.3% stage REM. The patient spent 76.8% of total sleep time in the supine position. Sleep efficiency was 86.03. Respiratory Analysis The overall AHI (pAHI 4%:) is 8.7. The central AHI is 1.1. The AHI was 6.1 in NREM and 18.9 in REM sleep. The AHI was 9.1 in Supine and 7.3 in Non-supine sleep. Percent of Jack Shah respirations is 0.0. Oximetry Data The oxygen desaturation index (DOMINICK 4%:) is 8.4. The mean saturation is 94%, and the lowest saturation is 87%. Time spent with saturation < 88% is 0.2 minutes. Snoring Profile Snoring average intensity is 50 dB. The patient snored above 45 decibels for 227.3 minutes, 57.7% of sleep time. Cardiac Profile The average pulse rate is 65 beats per minutes. The lowest pulse rate is 55 bpm. The highest pulse rate reported is 95 bpm. Atrial fibrillation was not detected. Premature beats occur <0.1 per minute. Assessment and Plan Assessment and Plan (1) DAWIT (obstructive sleep apnea): Code(s): G47.33 - Obstructive sleep apnea (adult) (pediatric) Status: Acute Assessment and Plan: The patient had an overall AHI of 8.7 with desaturation down to 87%. This is consistent with mild sleep apnea. Due to the patient's asthma, she qualifies for treatment. I recommend that the patient be prescribed Resmed AutoPAP 5-15 cm H2O, CPAP mask/filters/tubing and heated humidity. This should be used with all episodes of sleep.? Compliance should be reviewed within 31-90 days of starting therapy for usage greater than 4 hours per night greater than 70% of the nights. The patient should be asked about symptoms such as?excessive daytime sleepiness, quality of sleep, decreased nocturia, increased?mental functioning such as memory, mood, and concentration. The patient's sleep history is highly suggestive of Restless Leg Syndrome. I recommend that the patient have a serum ferritin drawn for evaluation of iron deficiency anemia. If the patient has a serum ferritin less than 75 ng/mL, I recommend starting a daily iron supplement and a Vitamin C supplement for better absorption. If the serum ferritin is greater than 75 ng/mL, I recommend starting a dopamine agonist and titrating the dose until symptoms resolve. There are nonpharmacological methods to treat limb movements including daily exercise, stretching calf muscles before bed, avoiding excessive amounts of caffeine and alcohol, vitamin B supplementation, magnesium lotion massaged into legs before bed, and use of a weighted blanket. Data The data obtained during this sleep study is adequate for interpretation. Certification This sleep study has been reviewed by a board certified sleep medicine physician.
== END 2024-01-19 09:25 | disposition home or self-care (01) ==
LOC: ANHCSM 07:38
PROVIDERS: PCP Family Medicine; Visit Provider Family Medicine
DX: G47.33 Obstructive sleep apnea (adult) (pediatric) (principal); G47.10 Hypersomnia, unspecified; I10 Essential (primary) hypertension
CPT/HCPCS: 95800

== ENCOUNTER 2024-09-07 12:13 | Outpatient (CLI) | payer OTHER, SELFPAY ==
--- NOTE | ~2024-09-07 | DEXA_ITS ---
Bone Density Report Name: REMY CHRISTENSEN Age: 64 Sex: Female Ethnicity: White Date of : 1960 Indication: postmenopausal; screening for osteoporosis; height loss; prior fracture; Referring Provider: TALIB WHIPPLE Study: Bone densitometry was performed. Exam Date: September 07, 2024 Accession number: [id number] Bone Density: Region BMD T-score Z-score Classification AP Spine(L1-L4) 1.174 1.2 2.8 Normal Femoral Neck (Left) 0.741 -1.0 0.5 Normal Total Hip (Left) 0.956 0.1 1.3 Normal Femoral Neck (Right) 0.712 -1.2 0.2 Osteopenia Total Hip (Right) 0.976 0.3 1.4 Normal Total Hip Mean 0.966 0.2 1.4 Normal World Health Organization criteria for BMD impression classify patients as: Normal (T-score at or above -1.0), Osteopenia (T-score between -1.0 and -2.5), or Osteoporosis (T-score at or below -2.5). 10-year Fracture Risk(1): Major Osteoporotic Fracture 11% Hip Fracture 0.8% Reported Risk Factors: [place] (), Neck BMD=0.712, BMI=45.2, previous fracture Input outside FRAX(R) limits. Adjusted to:Sglgbd=552 kg (1) FRAX(R) Version 3.08. Fracture probability calculated for an untreated patient. Fracture probability may be lower if the patient has received treatment. Previous Exams: Region Exam Age BMD T-score BMD Change BMD Change Date g/cm2 vs Baseline vs Previous AP Spine (L1-L4) 09/07/2024 64 1.174 1.2 -0.034 (-2.8%) -0.034 (-2.8%) 12/04/2021 61 1.207 1.5 Total Hip(Left) 09/07/2024 64 0.956 0.1 -0.009 (-1.0%) -0.009 (-1.0%) 12/04/2021 61 0.966 0.2 Total Hip(Right) 09/07/2024 64 0.976 0.3 0.159 (19.4%)* 0.159 (19.4%)* 12/04/2021 61 0.817 -1.0 *Denotes significance at 95% confidence level, LSC for AP Spine = 0.022 g/cm2, LSC for Total Hip = 0.027 g/cm2 Clinical Information Provided by Patient: Has had a low trauma fracture Has used the following medications: Vitamin D, Calcium Patient maximum height was 67 Menopause Age: 55 No regular weight bearing exercise Onset of menses at age 15 Number of children 0 Impression: The patient has low bone mass, based on the Right Femoral Neck T-score. The patient has an estimated ten-year risk of hip fracture of 0.8% and an estimated ten-year risk of major fracture of 11%, based on the WHO FRAX algorithm. The patient has risk factors, including: previous fracture. The BMD for the AP Spine (L1-L4) decreased, changing by -2.8% since the last DXA exam. Discussion: BONE DENSITY IS LOW AT ONE OR MORE SKELETAL SITES. This patient's lowest T-score is low at one or more skeletal sites. It meets the World Health Organization's (WHO) criteria for ?low bone mass? (T-score between -1.0 and -2.5). The patient's 10-year risk of fracture as calculated by FRAX is less than the threshold where pharmacological therapy is recommended by the National Osteoporosis Foundation (NOF). However, all treatment decisions require clinical judgment and consideration of individual patient factors, including patient preferences, comorbidities, previous drug use, risk factors not captured in the FRAX model (e.g., frailty, falls, vitamin D deficiency, increased bone turnover, interval significant decline in bone density) and possible under or overestimation of fracture risk by FRAX. The patient should follow a healthful lifestyle (good nutrition with adequate calcium and vitamin D, and appropriate weight-bearing exercise). Follow-Up: Consider repeating this study in 2 years to reassess this patient's status, or sooner if there is some new clinical indication. Reported by: NIKOS on 09/07/2024 12:50:00 PM. Reviewed, dictated and finalized at location A.
--- OUTSIDE RECORDS SUMMARY | 2024-09-07 12:16 | XMS_ITS | Clinical Summary ---
Author Organization [facility] Address [address] [place] [id number] Care Team Providers Care Student Support Services Director Name Role Phone Bella Bo MD Primary Care Provider [phone] Social History Tobacco Use Types Packs/Day Years Used Date Smoking Tobacco: Never Assessed Comments Unknown Sex and Gender Information Value Date Recorded Sex Assigned at Not on file Legal Sex Female 4:07 PM CDT Gender Identity Not on file Sexual Orientation Not on file Plan of Treatment Health Maintenance Due Date Last Done Comments Cervical Cancer Screening Pa p Smear (Age 30 to 64) Every 3 Years 1961 Colorectal Cancer Screening Colonoscopy (10 Years) 1961 Annual Physical 1964 Hepatitis C 1979 DTaP, Tdap and Td Vaccines ( 1 - Tdap) 1980 Cervical Cancer Screening Pa p with HPV Testing (Age 30 to 64) Every 5 Years 1991 Cervical Cancer Screening [facility] HPV 1991 Mammogram Screening 2001 Pneumococcal Vaccine: 50+ Years (1 of 1 - PCV) 2011 Zoster Vaccines (1 of 2) 2011 COVID-19 Vaccine (2023-2 5 season) 2023 03/17/2020, 02/18/2020 RSV Immunization or 60+ Years (1 - 1-dose 75+ series) 2036 Meningococcal B Vaccine Aged Out No l onger eligible based on patient's age to complete this topic Meningococcal Vaccine Aged Out No riya pablo eligible based on patient's age to complete this topic RSV Immunizations Under 20 Months Aged Out No longer eligible b ased on patient's age to complete this topic Insurance [facility] Care Teams Student Support Services Director Relationship Specialty [place] [id number] [place] [address] PCP - General FAMILY PRACTICE 05/07/20
--- OUTSIDE RECORDS SUMMARY | 2024-09-07 12:16 | XMS_ITS | Patient Health Record ---
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 Screening reviewed and consent signed. Patient tolerated well. COVID-19 Moderna Booster IM Intramuscular 12/13/2020 Administered Plan Of Treatment No Information Insurance Providers Payer Name Payer Address Payer Phone Subscriber Number Group Number Insured Name Patient Relationship to Insured Coverage Start Date Coverage End Date [facility] [address] [place] [address] [id number] Genet Hickman Self - patient is the insured 1
--- OUTSIDE RECORDS SUMMARY | 2024-09-07 12:16 | XMS_ITS | Clinical Summary ---
Author Organization [facility] Address [address] [place] [address] Care Team Providers Care Accreditation Specialist Name Role Phone Gianna Alarcon DO Primary Care Provider [phone] [facility],non-owned Affiliates and Associated Physician Practices is amultiple site organization consisting of ambulatory clinics and hospital sitesin [place], [place], [place] and [place]. This disclosure is being madepursuant to the Care Everywhere program and may not contain all information available regarding this patient. Last updated 17.[facility] Allergies No known active allergies Medications * Be aware that medications may not be up to date on this document. Alwaysverify current medications with the patient. cetirizine (ZYRTEC) 10 MG tablet Take 1 (one) tablet by mouth once daily Active Coenzyme Q10 10 MG Take 10 mg by mouth once daily Active aspirin EC (ECOTRIN) 81 MG tablet Take 1 (one) tablet by mouth once daily Active Ascorbic Acid (Vitamin C) 100 MG 3 Active betamethasone dipropionate 0.05 % lotion as needed 3 Active calcium citrate-vitamin D ([facility]S Calcium Citrate +D3 Mini) 200-6.25 MG-MCG tablet Take 1 (one) tablet by mouth once daily 3 Active celecoxib (CeleBREX) 100 MG capsule Take 1 (one) capsule by mouth 2 times daily as needed 3 Active furosemide (Lasix) 20 MG tablet Take 1 (one) tablet by mouth every morning 3 Active LORazepam (Ativan) 0.5 MG tablet Take 1 (one) tablet by mouth as needed 3 Active pantoprazole EC (Protonix) 40 MG tablet Take 1 (one) tablet by mouth every morning 3 Active Active Problems Problem Noted Date Diagnosed Date Hypertension 12/21/2012 Overview (07/11/2020): HTN (hypertension) Unknown and unspecified causes of morbidity 12/10 Overview (07/11/2020): Migraine Immunizations Immunization Administration Dates Next Due HEP A/HEP B 07/10/2006,04/10/2006,03/13/2006 INFLUENZA VACCINE, CELL CULT URE, QUADR. (FLUCELVAX QUADRIVALENT; 6MO+) (CCIIV4) 12/03/2021,11/23/2019 INFLUENZA VACCINE, QUADR. (A FLURIA, FLUZONE QUADRIVALENT; 6MO+) (IIV4) 11/21/2020 INFLUENZA VACCINE, QUADR. (F LUZONE; FLULAVAL; FLUARIX; AFLURIA QUADRIVALENT; 6MO+), 0.5 ML (IIV4) 12/03/2022 INFLUENZA VACCINE, TRIV. (FL UZONE; FLULAVAL; FLUARIX; AFLURIA TRIVALENT; 6MO+), 0.5 ML (IIV3) 11/10/2018 MMR VACCINE 08/07/1993 TD (AGE 7-ADULT) 08/07/1993 TDAP (7yrs+) 11/14/2005 Zoster Hzv Vacc Recombinant Inj Im 12/11/2022 Family History Medical History Relation Name Comments CAD (Coronary Artery Disease) Father Diabetes - Type 2 Father Hypertension Father Diabetes - Type 2 Mother Relation Name Status Comments Father Mother Social History Tobacco Use Types Packs/Day Years Used Date Smoking Tobacco: Never Smokeless Tobacco: Never Tobacco Cessation:Counseling Given: Not Answered Alcohol Use Standard Drinks/Week Comments Yes 0 (1 standard drink = 0.6 oz pur e alcohol) weekly PHQ-2 Answer Date Recorded Patient Health Questionnaire-2 Score 0 07/17/2023 Comments No Sex and Gender Information Value Date Recorded Sex Assigned at Not on file Legal Sex Female 11:52 AM CDT Gender Identity Not on file Sexual Orientation Not on file Last Filed Vital Signs Vital Sign Reading Time Taken Comments Blood Pressure 142/74 01/21/2023 1:56 PM 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 VALVE REPAIRER Pulse 72 01/21/2023 1:56 PM CYLINDER VALVE REPAIRER Temperature - - Respiratory Rate - - Oxygen Saturation - - Inhaled Oxygen Concentration - - Weight 125.2 kg (276 lb) 01/21/2023 1:56 PM CYLINDER VALVE REPAIRER Height 170.2 cm (5' 7) 01/21/2023 1:56 PM CYLINDER VALVE REPAIRER Body Mass Index 43.23 01/21/2023 1:56 PM CYLINDER VALVE REPAIRER Plan of Treatment Health Maintenance Due Date Last Done Comments COLOGUARD (AGES 45-75) - COLON CA SCREENING [address] COLONOGRAPHY - COLON CA SCREENING 1960 FIT - COLON CA SCREENING 1960 FLEX SIG - COLON CA SCREENING 1960 LIPID TESTING 1960 HIV SCREENING 1976 HEPATITIS C SCREENING 03/12/1979 PNEUMOCOCCAL VACCINE 50+ (1 of 1 - PCV) 2011 DTAP/TDAP/TD VACCINES (3 - Td or Tdap) 11/15/2015 11/14/2005, 08/07/1993 Respiratory Syncytial Virus (RSV) Vaccine Pt: or over 60 yrs (1 - Risk 60-74 years 1-dose series) 2021 SCREENING FOR DIABETES 01/21/2023 ZOSTER VACCINE (2 of 2) 02/05/2023 12/11/2022 COVID-19 VACCINE ( season) 2023 12/03/2022, 12/03/2021, 12/13/2020, Additional history exists DEPRESSION SCREENING 02/10/2024 01/21/2023 INFLUENZA VACCINE (#1) 2024 , 12/03/2021, 11/21/2020, Additional history exists MAMMOGRAM 12/12/2024 12/12/2022 (Done Outside Per Patient), 10/19/2017 (Done Outside Per Report) PAP with HPV 01/22/2028 01/21/2023, 10/21/2017 COLONOSCOPY - COLON CA SCREENING 01/28/2032 01/27/2022 (Done Outside Per Patient) Colorectal Cancer Screening 01/28/2032 HEPATITIS B VACCINE Completed 07/10/2006, 04/10/2006, 03/13/2006 HIB VACCINE Aged Out No longer eligi ble based on patient's age to complete this topic HPV VACCINE Aged Out No longer eligi ble based on patient's age to complete this topic MENINGOCOCCAL (Group B) VACCINE SHARED DECISION-MAKING Aged Out No longer eligible based on patient's age to complete this topic MENINGOCOCCAL GROUPS A/C/Y/W VACCINE Aged Out No longer eligible based on patient's age to complete this topic Procedures Procedure Name Priority Date/Time Associated Diagnosis Comments PAP IG LB+HPV APTIMA Routine 01/21/2023 2:32 PM CYLINDER VALVE REPAIRER Well woman exam from Last 3 Months or Most Recently Relevant to Health Maintenance Results * PAP IG LB+HPV APTIMA (01/21/2023 2:32 PM CYLINDER VALVE REPAIRER) Diagnosis [facility] ACCOUNT BILL Comment:NEGATIVE FOR INTRAEP ITHELIAL LESION OR MALIGNANCY. Specimen Adequacy [facility] ACCOUNT BILL Comment:Satisfactory for kapil luation. No endocervical component is identified. Clinician Provided ICD10 [facility] ACCOUNT BILL Comment:Z01.419 Performed by [facility] ACCOUNT BILL Comment:Aparna Greer, Cytot echnologist (ASCP) Comment . [facility] ACCOUNT BILL Note [facility] ACCOUNT BILL Comment: The Pap smear is a screening test designed to aid in the detection of premalignant and malignant conditions of the uterine cervix. It is not a diagnostic procedure and should not be used as the sole means of detecting cervical cancer. Both false-positive and false-negative reports do occur. . IGLBP CPT Code Automation [facility] ACCOUNT BILL Comment: This liquid based ThinPrep(R) pap test was screened with the use of an image guided system. Human papillomavirus Aptima Negative Negative [facility] ACCOUNT BILL Comment: This nucleic acid amplification test detects fourteen high-risk HPV types (16,18,31,33,35,39,45,51,52,56,58,59,66,68) without differentiation. Pathology/Cytolog y PART OF UTERINE CERVIX / Unknown 01/21/2023 2:32 PM CYLINDER VALVE REPAIRER 01/22/2023 Narrative [facility] ACCOUNT BILL - 01/27/2023 3:09 PM CYLINDER VALVE REPAIRER No. of containers..01 ThinPrep Vial Resulting Agency Comment Lab Testing performed at: [facility] [address] [place] [id number] Alida Lomas MD LAB - PATHOLOGY/CYTOLOGY OR DERABLES Final Result [facility] ACCOUNT BILL [address] [place] [address] from Last 3 Months or Most Recently Relevant to Health Maintenance [place] [id number] [facility] [place] Address[place] [address] [address] SELF PAY NO INSURANCE Member Subscriber Plan / Payer (Ef fective for All Dates) Name:Remy Hickman Member ID:Not on file Relation to Subscriber:Not on file Name:REMY HICKMAN Subscriber ID:Not on file Address: [address] [place] [id number] Payer ID:Not on file Group ID:Not on file Type:Self Pay Address: [place], [place] SELF PAY NO INSURANCE Member Subscriber Plan / Payer (Ef fective for All Dates) Name:Remy Hickman Member ID:Not on file Relation to Subscriber:Not on file Name:REMY HICKMAN Subscriber ID:Not on file Address: [address] [place], [place] [id number] Payer ID:Not on file Group ID:Not on file Type:Self Pay Address: [place], [place] SELF PAY NO INSURANCE Member Subscriber Plan / Payer (Ef fective for All Dates) Name:Remy Hickman Member ID:Not on file Relation to Subscriber:Not on file Name:REMY HICKMAN Subscriber ID:Not on file Address: [address] [place] [address] Payer ID:Not on file Group ID:Not on file Type:Self Pay Address: [place] SELF PAY NO INSURANCE Member Subscriber Plan / Payer (Ef fective for All Dates) Name:Remy Hickman Member ID:Not on file Relation to Subscriber:Not on file Name:REMY HICKMAN Subscriber ID:Not on file Address: [address] [place] [address] Payer ID:Not on file Group ID:Not on file Type:Self Pay Address: [place], [place] * Guarantor: REMY HICKMAN Account Type Relation to Patient Date of Phone Billing Address Personal/Family [address] [place] [address] SELF PAY NO INSURANCE Member Subscriber Plan / Payer (Ef fective for All Dates) Name:Remy Hickman Member ID:Not on file Relation to Subscriber:Not on file Name:REMY HICKMAN Subscriber ID:Not on file Address: [address] [place] [address] Payer ID:Not on file Group ID:Not on file Type:Self Pay Address: [place], [place] * Guarantor: REMY HICKMAN Account Type Relation to Patient Date of Phone Billing Address Personal/Family [address] [place] [address] CARE SELF PAY NO INSURANCE Member Subscriber Plan / Payer (Ef fective for All Dates) Name:Remy Hickman Member ID:Not on file Relation to Subscriber:Not on file Name:REMY HICKMAN Subscriber ID:Not on file Address: [address] [place] [address] Payer ID:Not on file Group ID:Not on file Type:Self Pay Address: [place], [place] * Guarantor: REMY HICKMAN Account Type Relation to Patient Date of Phone Billing Address Personal/Family [address] [place] [address] CARE SELF PAY NO INSURANCE Member Subscriber Plan / Payer (Ef fective for All Dates) Name:Remy Hickman Member ID:Not on file Relation to Subscriber:Not on file Name:REMY HICKMAN Subscriber ID:Not on file Address: [address] [place] [id number] Payer ID:Not on file Group ID:Not on file Type:Self Pay Address: [place], [place] Care Teams Accreditation Specialist Relationship Specialty Start Date End Date Gianna Alarcon DO [address] [place] [address] PCP - General Family Medicine 01/21/23
--- OUTSIDE RECORDS SUMMARY | 2024-09-07 12:16 | XMS_ITS | Clinical Summary ---
Author Organization Address [address] [place] [address] Care Team Providers Care Youth Agent Name Role Phone Unavailable Primary Care Provider Unavailabl e Immunizations Immunization Administration Dates Next Due Covid-19, Mrna, Lnp-s, PF, 1 00 mcg/0.5 mL Dose (Moderna) 03/17/2020,02/18/2020 Social History Tobacco Use Types Packs/Day Years Used Date Smoking Tobacco: Never Assessed Comments Unknown Sex and Gender Information Value Date Recorded Sex Assigned at Not on file Legal Sex Female 10:18 PM CDT Gender Identity Not on file Sexual Orientation Not on file Plan of Treatment Health Maintenance Due Date Last Done Comments Hepatitis C Virus (HCV) Screening 1961 TdaP Immunization 1961 Pap Smear 1982 Cervical Cancer Screening (CCS) 1991 HPV/Cotest 1991 Cologuard 2006 Colonoscopy 2006 Colorectal Cancer Screening 2006 Immunochemical Fecal Occult Blood 2006 Pneumococcal Immunization (5 0+ years) (1 of 1 - PCV) 2011 Zoster Immunization (1 of 2) 2011 SARS-COV-2 Immunization ( season) 2023 12/13/2020, 03/17/2020, 02/18/2020 Influenza Immunization (#1) 10/10/202411/09, 11/10/2018 Respiratory Syncytial Virus (RSV) Immunization (Adult) (1 - 1-dose 75+ series) 2036 DTaP/Tdap/Td Immunization Discontinued 08/07/1993 Hepatitis B Immunization Aged Out No longer eligible based on patient's age to complete this topic Human Papillomavirus (HPV) Immunization Aged Out No longer eligible based on patient's age to complete this topic Meningococcal Immunization (ACWY) Aged Out No longer eligible based on patient's age to complete this topic Rotavirus Immunization Aged Out No lo nger eligible based on patient's age to complete this topic
== END 2024-09-07 12:14 | disposition home or self-care (01) ==
LOC: ANHIMG 12:14
PROVIDERS: PCP Family Medicine; Visit Provider Family Medicine
DX: M85.88 Other specified disorders of bone density and structure, other site (principal); M85.851 Other specified disorders of bone density and structure, right thigh
CPT/HCPCS: 77080

== ENCOUNTER 2024-10-13 01:17 | Day surgery (SDC) | payer OTHER, SELFPAY ==
[2024-10-04 10:18] VITALS: BMI 44.9
--- OUTSIDE RECORDS SUMMARY | 2024-10-13 01:22 | XMS_ITS | Clinical Summary ---
Author Organization [facility] Address [address] [place] [address] Care Team Providers Care Scrap Crusher Name Role Phone Bella Bo MD Primary Care Provider [phone] Social History Tobacco Use Types Packs/Day Years [...] Every 5 Years [address] [facility] HPV 1991 Mammogram Screening 2001 Pneumococcal Vaccine: [...] patient's age to complete this topic Insurance [facility] Care Teams Scrap Crusher Relationship Specialty [place] [address] [place] [address] PCP - General FAMILY PRACTICE 05/07/20
--- OUTSIDE RECORDS SUMMARY | 2024-10-13 01:22 | XMS_ITS | Clinical Summary ---
Author Organization [facility] Address [address] [place] [address] Care Team Providers Care Executive Vice President Business Development Name Role Phone Unavailable Primary Care Provider [...]
--- OUTSIDE RECORDS SUMMARY | 2024-10-13 01:22 | XMS_ITS | Patient Health Record ---
Author Organization [facility] Address [address] [place] [address] Care Team Providers Care Painter Railroad Car Name Role Phone Rubén Kyle Primary Care Provider Reason For Referral No Information Immunizations Vaccine Route Administration Date Status Comme nts COVID-19 Moderna Booster IM Intramuscular 12/13/2020 Administered COVID-19 Moderna 1ST IM Intramuscular 02/18/2020 Administered COVID-19 Moderna 1ST IM Intramuscular 03/17/2020 Administered EUA date 0. Screening reviewed and consent signed. Patient tolerated well. Plan Of Treatment No Information Insurance Providers Payer Name Payer Address Payer Phone Subscriber Number Group Number Insured Name Patient Relationship to Insured Coverage Start Date Coverage End Date [facility] [address] [place] [address] [phone] [id number] Genet Hickman Self - patient is the insured 1
[2024-10-13 06:18] VITALS: BP 123/77; PULSE 88; RESP 18; TEMP 36.1; O2SAT 97
[2024-10-13] MEDS: LACTATED RINGERS 1,000 ML 150 ML IV CONT (06:31)
--- NOTE | 2024-10-13 07:24 | PM.HPGS ---
History of Present Illness History of Present Illness Consent: Risks, benefits, and alternatives have been discussed and questions answered. Patient agrees to proceed with procedure. Chief complaint: Personal history of colon polyps, unspecified Narrative: Genet Hickman is a 64 year old female with colon polyps 3 years ago Review of Systems Review of Systems: All systems reviewed & are unremarkable except as noted in HPI and below PMFSH Past Medical History Medical History Carpal tunnel syndrome, left Cubital tunnel syndrome on left Painful orthopaedic hardware Numbness and tingling in left arm Duodenal stenosis Fracture of metacarpal base of left hand, closed Claustrophobia Weight loss counseling, encounter for Morbid obesity Asthma Morbid obesity with BMI of 45.0-49.9, adult Osteopenia after menopause Noted on x-rays April 2020 patient was referred for DEXA scan September 2021 Degenerative disc disease at L5-S1 level Noted on MRI of the hip and pelvis 03/2018 Mammogram normal 07/12/2020 Mild chronic obstructive pulmonary disease Mild obstructive ventilatory impairment noted on PFTs 11/2018 Allergic rhinitis Postmenopausal COVID-19 (08/2021) Osteoarthritis of right knee Chronic GERD Arthritis Hyperlipidemia Hyperglycemia Glucose 115 June 2019 Obstructive sleep apnea syndrome Polysomnogram 10/2018 demonstrated mild obstructive sleep apnea with hypoxic events down to 82% but did not meet criteria for CPAP titration. Polycythemia Surgical History Surgical History History of carpal tunnel surgery of left wrist History of hysteroscopy (08/31/23) Hysteroscopy with D&C / Benign pathology H/O wrist surgery ORIF Left wrist 11/12/[address] Holm History of colonoscopy (04/2012) Diverticulum transverse colon Family History Family History Father Diabetes mellitus Hypertension Acute myocardial infarction, Onset Age: 45 Mother Diabetes mellitus Other Depression Heart disease Social History Social History Social History: Code status: Full code Surrogate decision maker: Smoking status: Never smoker Second hand tobacco smoke exposure: No Alcohol intake: current Drinks per week: 4 Alcohol use details: Occasionally Substance use: never Substance use type: does not use Do You Feel Safe in your Home?: Yes Lack of Transportation: No Lack of Food: Never True Current Housing: I Have Housing Concerned About Future Housing: No Difficulty Paying Gas/Electric Bills: No Difficulty Paying for Meds: No Currently Unemployed: No Education: Master's Degree or Higher Difficulty w/ Childcare or Family Care: No Living arrangements: with family Additional living arrangements comments: with sp Occupation/Education: occupation Additional occupation/education comments: 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 She has worked at home since COVID started. Gender identity (if verbalized by the patient): Female Spiritual care concerns: No Agree to blood products: Yes Meds Home Medications and Allergies Home Medications ?Medication ?Instructions ?Recorded ?Confirmed ?Type aspirin 81 mg chewable tablet 81 mg PO DAILY 05/07/20 10/04/24 History cetirizine 10 mg tablet (Zyrtec) 10 mg PO DAILY 08/22/21 10/04/24 History coenzyme Q10 200 mg capsule 200 mg PO DAILY 11/10/21 10/04/24 History ascorbic acid (vitamin C) 500 mg 250 mg PO DAILY 01/13/22 10/04/24 History tablet calcium 600 mg (as 1 cap PO DAILY 01/13/22 10/04/24 History carbonate)-vitamin D3 12.5 mcg (500 unit) capsule (Calcium with Vit D3) acetaminophen 500 mg tablet 1,000 mg PO TID PRN Pain 11/10/23 10/04/24 History celecoxib 100 mg capsule See Rx Instructions .Route 11/11/23 10/04/24 Rx .COMPLEX #180 caps CPAP supplies #1 ea 02/17/24 07/14/24 Rx pantoprazole 40 mg tablet,delayed 40 mg PO QAM #90 tabs 07/14/24 10/04/24 Rx release furosemide 20 mg tablet See Rx Instructions .Route 07/22/24 10/04/24 Rx .COMPLEX #90 tabs trazodone 100 mg tablet 100 mg PO QHS PRN insomnia #90 tabs 09/05/24 10/04/24 Rx tirzepatide 7.5 mg/0.5 mL 7.5 mg (0.5 mL) subcut WEEKLY #2 mL 10/04/24 10/13/24 Rx subcutaneous pen injector (Ingrid) Allergies Allergy/AdvReac Type Severity Reaction Status Date / Time No Known Allergies Allergy Verified 10/13/24 06:17 Vital Signs Vital Signs - 24 hr 10/13/24 06:18 Temperature 97 F L Pulse Rate 88 Respiratory Rate 18 Blood Pressure 123/77 Pulse Oximetry 97 Oxygen Delivery Room Air Exam Const: General: comfortable and no acute distress HENMT: Face/Nose/Sinus: Normal nares present Eyes: General: appearance normal, both eyes and all related structures Neck: Neck: no JVD Resp: Auscultation: clear to auscultation bilaterally Cardio: Rate: regular rate Rhythm: regular rhythm GI: Inspection: non-distended GI Palp: Yes Soft to palpation Skin: General skin exam: normal color Neuro: General: gait normal Speech: normal speech Extrem: General: normal to inspection Psych: Mental Status: mental status grossly normal Assessment and Plan Assessment and plan (1) History of colonic polyps: Code(s): Z86.0100 - Personal history of colon polyps, unspecified Status: Acute Assessment and Plan: colonoscopy
--- NOTE | 2024-10-13 07:25 | P.PNAN_ITS ---
Anes - Initial Pre Proc Eval Procedure: Operation Date: 10/13/24 07:30 Proposed Procedures p Screening Colonoscopy - Jenaro Xavier MD Date/Time: 10/13/24 07:25 Surgeon: Jenaro Xavier MD Pre Op Diagnosis: Personal history of colon polyps, unspecified Patient Data Age: 64 Gender: F Height: 1.7 m Weight: 130.2 kg Last Vital Signs Temp 97 F L 10/13/24 06:18 Pulse 88 10/13/24 06:18 Resp 18 10/13/24 06:18 BP 123/77 10/13/24 06:18 Pulse Ox 97 10/13/24 06:18 O2 Del Method Room Air 10/13/24 06:18 Allergies Allergy/AdvReac Type Severity Reaction Status Date / Time No Known Allergies Allergy Verified 10/13/24 06:17 Home Medications ?Medication ?Instructions ?Recorded ?Confirmed ?Type aspirin 81 mg chewable tablet 81 mg PO DAILY 05/07/20 10/04/24 History cetirizine 10 mg tablet (Zyrtec) 10 mg PO DAILY 10/04/24 History coenzyme Q10 200 mg capsule 200 mg PO DAILY 11/10/21 0 10/04/24 History ascorbic acid (vitamin C) 500 mg 250 mg PO DAILY 01/1310/04/24 History tablet calcium 600 mg (as 1 cap PO DAILY 01/13/2209/10 History carbonate)-vitamin D3 12.5 mcg (500 unit) capsule (Calcium with Vit D3) acetaminophen 500 mg tablet 1,000 mg PO TID PRN Pain 1 10/04/24 History celecoxib 100 mg capsule See Rx Instructions .Route 1 10/04/24 Rx .COMPLEX #180 caps CPAP supplies #1 ea 02/17/24 07/14/24 Rx pantoprazole 40 mg tablet,delayed 40 mg PO QAM #90 tab s 07/14/24 10/04/24 Rx release furosemide 20 mg tablet See Rx Instructions .Route 0 07/22/24 10/04/24 Rx .COMPLEX #90 tabs trazodone 100 mg tablet 100 mg PO QHS PRN insomnia # 90 tabs 09/05/24 10/04/24 Rx tirzepatide 7.5 mg/0.5 mL 7.5 mg (0.5 mL) subcut WEEKL Y #2 mL 10/04/24 10/13/24 Rx subcutaneous pen injector (Ingrid) Patient hx anesthesia problems: none Family hx anesthesia problems: none Results Review: All pre-operative results and documents have been reviewed as part of the pre- operative evaluation. [facility] Past Medical History Medical History Carpal tunnel syndrome, left Cubital tunnel syndrome on left Painful orthopaedic hardware Numbness and tingling in left arm Duodenal stenosis Fracture of metacarpal base of left hand, closed Claustrophobia Weight loss counseling, encounter for Morbid obesity Asthma Morbid obesity with BMI of 45.0-49.9, adult Osteopenia after menopause Noted on x-rays April 2020 patient was referred for DEXA scan September 2021 Degenerative disc disease at L5-S1 level Noted on MRI of the hip and pelvis 03/2018 Mammogram normal 07/12/2020 Mild chronic obstructive pulmonary disease Mild obstructive ventilatory impairment noted on PFTs 11/2018 Allergic rhinitis Postmenopausal COVID-19 (08/2021) Osteoarthritis of right knee Chronic GERD Arthritis Hyperlipidemia Hyperglycemia Glucose 115 June 2019 Obstructive sleep apnea syndrome Polysomnogram 10/2018 demonstrated mild obstructive sleep apnea with hypoxic events down to 82% but did not meet criteria for CPAP titration. Polycythemia Surgical History Surgical History History of carpal tunnel surgery of left wrist History of hysteroscopy (08/31/23) Hysteroscopy with D&C / Benign pathology H/O wrist surgery ORIF Left wrist 11/12/[address] Holm History of colonoscopy (04/2012) Diverticulum transverse colon Family History Family History Father Diabetes mellitus Hypertension Acute myocardial infarction, Onset Age: 45 Mother Diabetes mellitus Other Depression Heart disease Social History Social History Social History: Code status: Full code Surrogate decision maker: Smoking status: Never smoker Second hand tobacco smoke exposure: No Alcohol intake: current Drinks per week: 4 Alcohol use details: Occasionally Substance use: never Substance use type: does not use Do You Feel Safe in your Home?: Yes Lack of Transportation: No Lack of Food: Never True Current Housing: I Have Housing Concerned About Future Housing: No Difficulty Paying Gas/Electric Bills: No Difficulty Paying for Meds: No Currently Unemployed: No Education: Master's Degree or Higher Difficulty w/ Childcare or Family Care: No Living arrangements: with family Additional living arrangements comments: with sp Occupation/Education: occupation Additional occupation/education comments: 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 She has worked at home since [employer] started. Gender identity (if verbalized by the patient): Female Spiritual care concerns: No Agree to blood products: Yes Anes - Eval Final PreProcedure Day of Procedure 10/13/24 07:25 Patient weight: morbidly obese Heart: regular rate and rhythm Lungs: clear to auscultation Airway: Mallampati scale class II Neurological: alert and oriented Last oral intake: >/= 8 hours ASA classification: III Emergent: no Anesthetic plan: proceed Anesthesia type and monitoring: general GIVS and standard monitoring Results Review: All pre-operative results and documents have been reviewed as part of the pre- operative evaluation. Informed Consent: The patient's anesthetic plan and its attendant risks and benefits were discussed with the patient/family/POA. Questions were solicited and answers provided to the satisfaction of the patient/family/POA.
[2024-10-13 07:43] VITALS: BP 111/57; PULSE 91; RESP 20; O2SAT 96
[2024-10-13 07:53] VITALS: BP 135/89; PULSE 83; RESP 24; O2SAT 98
[2024-10-13 08:03] VITALS: BP 137/76; PULSE 73; RESP 17; O2SAT 100
== END 2024-10-13 08:12 | disposition home or self-care (01) ==
PROVIDERS: PCP Family Medicine; Referring Provider Nurse Practitioner; Visit Provider Internal Medicine Gastroenterology
PROC: 0DJD8ZZ Inspection of Lower Intestinal Tract, Via Natural or Artificial Opening Endoscopic (ICD-10-PCS; CPT 45378; principal; 2024-10-13 07:30)
DX: Z12.11 Encounter for screening for malignant neoplasm of colon (principal); K57.30 Diverticulosis of large intestine without perforation or abscess without bleeding; K64.8 Other hemorrhoids; Z86.0100 Personal history of colon polyps, unspecified; E66.01 Morbid (severe) obesity due to excess calories; Z68.42 Body mass index [BMI] 45.0-49.9, adult
CPT/HCPCS: 45378; J2003; J2704; J7120

== ENCOUNTER 2025-01-09 12:33 | Outpatient (CLI) | payer OTHER, SELFPAY ==
--- NOTE | ~2025-01-09 | XR_ITS ---
EXAMINATION: XR knee LT min 4V, 01/09/2025 13:04 FACILITATOR HISTORY: Pain in left knee, fell on thursday, pain since COMPARISON: No comparisons available. Findings: No acute fracture or malalignment. Moderate tricompartmental degenerative changes, small effusions Soft tissues unremarkable. Impression: No acute fracture or malalignment. Reviewed, dictated and finalized at location P. LITATOR Impression: No acute fracture or malalignment.
== END 2025-01-09 12:34 | disposition home or self-care (01) ==
PROVIDERS: PCP Orthopaedic Surgery; Visit Provider Family Medicine
DX: M25.562 Pain in left knee (principal)
CPT/HCPCS: 73564

== ENCOUNTER 2025-01-16 09:39 | Outpatient (CLI) | payer OTHER, SELFPAY ==
--- NOTE | ~2025-01-16 | MM_ITS ---
EXAMINATION: MM screening shazia BI w naif HISTORY: Screening. TECHNIQUE: Craniocaudal and mediolateral oblique 3-D tomosynthesis images were obtained and synthetic 2-D images were generated. CAD analysis was submitted and interpreted. COMPARISON: 2022, 2021, and 2020 BREAST PARENCHYMAL COMPOSITION: Not Dense: The breasts are almost entirely fatty FINDINGS: No suspicious masses are seen. There are no suspicious calcifications. No unexplained architectural distortion is seen. There are no skin or nipple abnormalities identified. There is no adenopathy seen on the images submitted. IMPRESSION: No mammographic evidence to suggest malignancy is seen. The patient may return to screening mammography as per ACR guidelines. BI-RADS 1 - Negative. Reviewed, dictated and finalized at location [facility]
== END 2025-01-16 09:40 | disposition home or self-care (01) ==
LOC: ANHFOHIMG 09:41
PROVIDERS: PCP Family Medicine; Visit Provider Obstetrics & Gynecology
DX: Z12.31 Encounter for screening mammogram for malignant neoplasm of breast (principal)
CPT/HCPCS: 77063; 77067